=== PATIENT | female | born 1990 | race Caucasian/White ===

== ENCOUNTER → 2016-04-24 | Outpatient (CLI) | payer OTHER, MEDICAID ==
[~2016-04-24] MED LIST: ANTIVERT 25MG25 MG PO; ATARAX25 MG PO; ATIVAN 0.50.5 MG/TAB PO; BCP TD; BIRTH CONTROL; CELEXA PO; CELEXA20 MG PO; CELEXA40 MG PO; CEPHALEXIN500 M1 PO; CITALOPRAM40 MG PO; CLEOCIN HC150 MG/CAP PO; CRYSELLE 30 MCG1 TAB PO; DAYSEE; DECADRON 4MG TAB4 MG PO; DEPO-PROVER400 MG/ML IM; DESYREL 50MG50 MG PO; DOXYCYCLINE 10100 MG PO; ESKALITH C450 MG/TAB PO; FERRO-TIME325 MG PO; FLAGYL500 MG; FLEXERIL 1010 MG/TAB PO; HYDROCODONE/APAP; IMITREX100 MG PO; IMITREX50 MG; IMPLANON68 MG ID; LAMICTAL 25MG T25 MG PO; LEVAQUIN 250MG250 MG PO; LEVAQUIN 750MG750 MG PO; LEVORA PO; LEXAPRO 10MG10 MG PO; LITHIUM CA150 MG/CAP PO; LO/OVRAL-28 301 TA1 PO; LO/OVRAL-28 301 TAB PO; LORTAB 5/500 501 TAB PO; MACROBID 1100 MG/CAP PO; MELOXICAM15 MG PO; MOTRIN 400400 MG/TAB PO; MOTRIN 600600 MG/TAB PO; MULTI VITAMINS1 TAB PO; MULTIPLE VITAMI1 CAP PO; NAPROSYN500 MG PO; NEURONTIN400 MG/CAP PO; NEXPLANON68 MG ID; NO HOME MEDICATIONS; NORCO 325 MG-51 TAB PO; PERCOCET 325 MG1 TA2 PO; PHENERGAN 25 TA25 MG PO; PREDNISONE20 MG PO; PRENATAL 1 MG +1 TAB PO; PRENATAL FORMU1 EAC3 PO; PRENATAL1 TA1 PO; PRENATAL1 TA5 PO; PRISTIQ 50 MG T50 MG PO; PROAIR HFA0.09 MG/AC IH; PYRIDIUM 100MG100 MG; PYRIDIUM200 M1 PO; REGLAN 10MG10 MG/TAB PO; SINGULAIR 110 MG/TAB PO; TUSS PO; ULTRAM 50MG TAB50 MG PO; VALIUM 2MG T2 MG/TAB PO; VENTOLIN0.09 MG IH; VICODIN 5/5001 UDTAB PO; WELLBUTRIN SR150 M1 PO; WELLBUTRIN XL150 MG PO; WELLBUTRIN XL300 M1 PO; ZITHROMAX 250M250 MG PO; ZITHROMAX Z PA250 MG PO; ZOFRAN 4MG T4 MG/TAB PO; ZOFRAN ODT4 MG PO; ZOFRAN8 MG PO
== END ==
LOC: BHSO 13:17
DX: F31.81 Bipolar II disorder (principal)

== ENCOUNTER 2016-04-29 20:52 | Emergency (ER) | payer OTHER, MEDICAID ==
[~2016-04-29] VITALS: Ht 167.6 cm; Wt 64.5 kg
[~2016-04-29 20:52] MED LIST changes: -DAYSEE; -DECADRON 4MG TAB4 MG PO; -DESYREL 50MG50 MG PO; -IMITREX100 MG PO; -PRISTIQ 50 MG T50 MG PO; -PYRIDIUM 100MG100 MG; -VALIUM 2MG T2 MG/TAB PO; -WELLBUTRIN XL150 MG PO
[2016-04-29 20:54] VITALS: TEMP 98
[2016-04-29] MEDS ORDERED: ESKALITH C450 MG/TAB PO (20:57)
[2016-04-29] MEDS ORDERED: WELLBUTRIN XL150 MG PO (20:57)
[2016-04-29 21:51] LABS: BASO # 0.1 (0.0-0.2); BASO % 0.8 % (0.0-2.0); EOS # 0.1 (0.0-0.7); EOS % 1.4 % (0-4.0); GRAN % 62.8 % (42.2-75.2); HEMATOCRIT 39.7 % (37.0-47.0); HEMOGLOBIN 12.6 g/dl (12.5-16.0); LYMPH # 1.7 (1.2-3.4); LYMPH % 26.2 % (20.0-51.0); MEAN CELL VOLUME 87 fl (80.0-100.0); MEAN CORPUSCULAR HEMOGLOBIN 28 pg (27.0-31.0); MEAN CORPUSCULAR HGB CONC 32 g/dl (33.0-37.0); MEAN PLATELET VOLUME 9.8 fl (7.4-10.4); MONO # 0.5 (0.1-0.6); MONO % 8.5 % (1.7-9.3); PLATELET COUNT 250 K/mm3 (130-400); RED BLOOD COUNT 4.57 M/mm3 (4.10-5.30); REDCELL DISTRIBUTION WIDTH-CV 13.2 % (11.5-14.5); WHITE BLOOD COUNT 6.3 K/mm3 (4.8-10.8)
[2016-04-29 21:58] LABS: PH 7 (5-8); SQUAMOUS EPITHELIAL 0-2 /hpf; URINE APPEARANCE Clear; URINE BACTERIA None Seen /hpf; URINE BILIRUBIN Negative (NEGATIVE); URINE BLOOD 3+ (NEGATIVE); URINE COLOR Straw; URINE GLUCOSE Negative (NEGATIVE); URINE KETONE Negative (NEGATIVE); URINE UROBILINOGEN Negative (NEGATIVE); URINE WBC 0-2 /hpf
[2016-04-29 22:08] LABS: ADJUSTED CALCIUM 9.2 mg/dL (8.4-10.2); ALBUMIN 4.2 gm/dL (3.5-5.0); BILIRUBIN,TOTAL 0.4 mg/dL (0.0-1.0); CALCIUM 9.4 mg/dL (8.4-10.2); CREATININE, serum 0.9 mg/dL (0.52-1.25); POTASSIUM 3.9 mmol/L (3.4-5.0)
[2016-04-29] MEDS ORDERED: ZOFRAN ODT4 MG PO (23:47)
[2016-04-29] MEDS ORDERED: NORCO 325 MG-51 TAB PO (23:47)
[2016-04-30 00:09] VITALS: BP 107/71; PULSE 92
== END 2016-04-30 00:15 | disposition home or self-care (01) ==
LOC: COL.ER 20:52
PROVIDERS: Emergency Medicine
DX: R10.31 Right lower quadrant pain (principal); Z87.442 Personal history of urinary calculi
CPT/HCPCS: J2405; J3010; J7030

== ENCOUNTER → 2016-05-24 | Outpatient (CLI) | payer OTHER, MEDICAID ==
[~2016-05-24] MED LIST changes: +DAYSEE; +DECADRON 4MG TAB4 MG PO; +DESYREL 50MG50 MG PO; +IMITREX100 MG PO; +PRISTIQ 50 MG T50 MG PO; +PYRIDIUM 100MG100 MG; +VALIUM 2MG T2 MG/TAB PO; +WELLBUTRIN XL150 MG PO
== END ==
LOC: BHSO 12:50
DX: F31.81 Bipolar II disorder (principal)

== ENCOUNTER → 2016-05-31 | Outpatient (CLI) | payer OTHER | LOC: BHSO 13:17 | DX: F31.81 Bipolar II disorder (principal) ==

== ENCOUNTER 2016-06-18 10:15 | Emergency (ER) | payer OTHER ==
[~2016-06-18] VITALS: Ht 170.2 cm; Wt 64.5 kg
[~2016-06-18 10:15] MED LIST changes: -DAYSEE; -DECADRON 4MG TAB4 MG PO; -DESYREL 50MG50 MG PO; -IMITREX100 MG PO; -PRISTIQ 50 MG T50 MG PO; -PYRIDIUM 100MG100 MG; -VALIUM 2MG T2 MG/TAB PO
[2016-06-18] MEDS ORDERED: PRISTIQ 50 MG T50 MG PO (10:19)
[2016-06-18 11:00] LABS: BASO # 0.1 (0.0-0.2); BASO % 0.3 % (0.0-2.0); EOS # 0.1 (0.0-0.7); EOS % 0.3 % (0-4.0); GRAN # 16.8 (1.4-6.5); GRAN % 89.7 % (42.2-75.2); HEMATOCRIT 46.2 % (37.0-47.0); HEMOGLOBIN 14.7 g/dl (12.5-16.0); LYMPH # 0.9 (1.2-3.4); LYMPH % 4.8 % (20.0-51.0); MEAN CELL VOLUME 87 fl (80.0-100.0); MEAN CORPUSCULAR HEMOGLOBIN 28 pg (27.0-31.0); MEAN CORPUSCULAR HGB CONC 32 g/dl (33.0-37.0); MEAN PLATELET VOLUME 10.6 fl (7.4-10.4); MONO # 0.8 (0.1-0.6); MONO % 4.5 % (1.7-9.3); PLATELET COUNT 284 K/mm3 (130-400); RED BLOOD COUNT 5.31 M/mm3 (4.10-5.30); REDCELL DISTRIBUTION WIDTH-CV 13.5 % (11.5-14.5); WHITE BLOOD COUNT 18.8 K/mm3 (4.8-10.8)
[2016-06-18 11:27] LABS: ADJUSTED CALCIUM 9.2 mg/dL (8.4-10.2); ALBUMIN 4.8 gm/dL (3.5-5.0); BILIRUBIN,TOTAL 0.8 mg/dL (0.0-1.0); CALCIUM 9.8 mg/dL (8.4-10.2); CREATININE, serum 0.71 mg/dL (0.52-1.25); POTASSIUM 3.8 mmol/L (3.4-5.0); TOTAL PROTEIN 8.1 gm/dL (6.4-8.2)
[2016-06-18 11:30] LABS: PH 5 (5-8); URINE APPEARANCE Clear; URINE BACTERIA Rare /hpf; URINE BILIRUBIN Negative (NEGATIVE); URINE BLOOD Negative (NEGATIVE); URINE COLOR Yellow; URINE GLUCOSE Negative (NEGATIVE); URINE KETONE Negative (NEGATIVE); URINE RBC 0-2 /hpf; URINE UROBILINOGEN Negative (NEGATIVE)
[2016-06-18] MEDS ORDERED: MACROBID 1100 MG/CAP PO (11:53)
[2016-06-18 11:55] VITALS: BP 106/56; PULSE 84; TEMP 98.1
== END 2016-06-18 12:01 | disposition home or self-care (01) ==
LOC: COL.ER 10:15
PROVIDERS: Physician Assistant
DX: K52.9 Noninfective gastroenteritis and colitis, unspecified (principal); N39.0 Urinary tract infection, site not specified; Z87.442 Personal history of urinary calculi
CPT/HCPCS: J2405; J2550; J7030

== ENCOUNTER 2016-07-09 15:10 | Emergency (ER) | payer OTHER ==
[~2016-07-09] VITALS: Ht 170.2 cm; Wt 64.5 kg
[~2016-07-09 15:10] MED LIST changes: -DAYSEE; -DECADRON 4MG TAB4 MG PO; -DESYREL 50MG50 MG PO; -IMITREX100 MG PO; -PYRIDIUM 100MG100 MG; -VALIUM 2MG T2 MG/TAB PO
[2016-07-09 15:12] VITALS: TEMP 98.5
[2016-07-09 16:07] LABS: BASO % 0.5 % (0.0-2.0); EOS % 0.7 % (0-4.0); GRAN # 4.1 (1.4-6.5); GRAN % 68.2 % (42.2-75.2); HEMATOCRIT 38.1 % (37.0-47.0); LYMPH # 1.2 (1.2-3.4); LYMPH % 19.6 % (20.0-51.0); MEAN CELL VOLUME 87 fl (80.0-100.0); MEAN CORPUSCULAR HEMOGLOBIN 27 pg (27.0-31.0); MEAN CORPUSCULAR HGB CONC 31 g/dl (33.0-37.0); MEAN PLATELET VOLUME 9.9 fl (7.4-10.4); MONO # 0.7 (0.1-0.6); MONO % 10.8 % (1.7-9.3); PLATELET COUNT 239 K/mm3 (130-400); RED BLOOD COUNT 4.36 M/mm3 (4.10-5.30); REDCELL DISTRIBUTION WIDTH-CV 13.6 % (11.5-14.5)
[2016-07-09 16:09] LABS: HEMOGLOBIN 11.9 g/dl (12.5-16.0)
[2016-07-09 16:13] LABS: PH 6 (5-8); SQUAMOUS EPITHELIAL 0-2 /hpf; URINE APPEARANCE Clear; URINE BACTERIA None Seen /hpf; URINE BILIRUBIN Negative (NEGATIVE); URINE BLOOD Negative (NEGATIVE); URINE COLOR Straw; URINE GLUCOSE Negative (NEGATIVE); URINE KETONE Negative (NEGATIVE); URINE RBC 0-2 /hpf; URINE UROBILINOGEN Negative (NEGATIVE); URINE WBC 0-2 /hpf
[2016-07-09 16:20] LABS: ADJUSTED CALCIUM 9.3 mg/dL (8.4-10.2); BILIRUBIN,TOTAL 0.5 mg/dL (0.0-1.0); CALCIUM 9.3 mg/dL (8.4-10.2); CREATININE, serum 0.74 mg/dL (0.52-1.25); POTASSIUM 3.6 mmol/L (3.4-5.0); TOTAL PROTEIN 6.7 gm/dL (6.4-8.2)
[2016-07-09] MEDS ORDERED: PHENERGAN 25 TA25 MG PO (16:48)
[2016-07-09 17:07] VITALS: BP 100/64; PULSE 76
== END 2016-07-09 17:08 | disposition home or self-care (01) ==
LOC: COL.ER 15:10
PROVIDERS: Physician Assistant
DX: K29.70 Gastritis, unspecified, without bleeding (principal); R19.7 Diarrhea, unspecified; Z87.442 Personal history of urinary calculi
CPT/HCPCS: C9113; J1170; J2550; J7030

== ENCOUNTER → 2016-07-09 | Outpatient (CLI) | payer OTHER, MEDICAID ==
[~2016-07-09] MED LIST changes: +DAYSEE; +DECADRON 4MG TAB4 MG PO; +DESYREL 50MG50 MG PO; +IMITREX100 MG PO; +PRISTIQ 50 MG T50 MG PO; +PYRIDIUM 100MG100 MG; +VALIUM 2MG T2 MG/TAB PO
== END ==
LOC: BHSO 14:43
DX: F43.10 Post-traumatic stress disorder, unspecified (principal)

== ENCOUNTER 2016-07-14 20:31 | Emergency (ER) | payer OTHER, MEDICAID ==
[~2016-07-14] VITALS: Ht 170.2 cm; Wt 63.6 kg
[2016-07-14 20:33] VITALS: TEMP 98.8
[2016-07-14] MEDS ORDERED: DESYREL 50MG50 MG PO (20:36)
[2016-07-14 21:12] LABS: BASO % 0.7 % (0.0-2.0); EOS # 0.1 (0.0-0.7); EOS % 1.5 % (0-4.0); GRAN # 3.6 (1.4-6.5); GRAN % 59.5 % (42.2-75.2); HEMATOCRIT 37.8 % (37.0-47.0); LYMPH # 1.7 (1.2-3.4); LYMPH % 27.5 % (20.0-51.0); MEAN CELL VOLUME 86 fl (80.0-100.0); MEAN CORPUSCULAR HEMOGLOBIN 27 pg (27.0-31.0); MEAN CORPUSCULAR HGB CONC 32 g/dl (33.0-37.0); MEAN PLATELET VOLUME 9.9 fl (7.4-10.4); MONO # 0.6 (0.1-0.6); MONO % 10.5 % (1.7-9.3); PLATELET COUNT 250 K/mm3 (130-400); REDCELL DISTRIBUTION WIDTH-CV 13.8 % (11.5-14.5); WHITE BLOOD COUNT 6.1 K/mm3 (4.8-10.8)
[2016-07-14 21:24] LABS: ALANINE AMINOTRANSFERASE 22 U/L (9-52); ALBUMIN 4.4 gm/dL (3.5-5.0); ALKALINE PHOSPHATASE 140 U/L (50-136); ANION GAP 13 mmol/L (7-16); BILIRUBIN,TOTAL 0.5 mg/dL (0.0-1.0); BLOOD UREA NITROGEN 8 mg/dL (7-17); CALCIUM 9.3 mg/dL (8.4-10.2); CARBON DIOXIDE 24 mmol/L (22-30); CHLORIDE 105 mmol/L (98-107); CREATININE, serum 0.77 mg/dL (0.52-1.25); GLUCOSE 104 mg/dL (74-106); POTASSIUM 3.5 mmol/L (3.4-5.0); SODIUM 141 mmol/L (137-145); TOTAL PROTEIN 6.8 gm/dL (6.4-8.2)
[2016-07-14 21:26] LABS: C-REACTIVE PROTEIN < 0.5 mg/dL (0.0-0.9)
[2016-07-14 21:31] LABS: ERYTHROCYTE SEDIMENTATION RATE 1 mm/hr (0-20)
[2016-07-14 21:33] LABS: B-TYPE NATRIURETIC PEPTIDE 38 pg/mL (0-125); TROPONIN-I < 0.012 ng/mL (0.000-0.034)
[2016-07-14 22:01] VITALS: BP 104/65; PULSE 109
== END 2016-07-14 22:06 | disposition home or self-care (01) ==
LOC: COL.ER 20:31
PROVIDERS: Emergency Medicine
DX: R07.9 Chest pain, unspecified (principal); R06.00 Dyspnea, unspecified
CPT/HCPCS: J1170; J1885; J2405; J7030

== ENCOUNTER → 2016-07-17 | Outpatient (CLI) | payer OTHER, MEDICAID ==
[~2016-07-17] MED LIST changes: +DAYSEE; +DECADRON 4MG TAB4 MG PO; +DESYREL 50MG50 MG PO; +IMITREX100 MG PO; +PYRIDIUM 100MG100 MG; +VALIUM 2MG T2 MG/TAB PO
== END ==
LOC: BHSO 13:56
DX: F31.31 Bipolar disorder, current episode depressed, mild (principal)

== ENCOUNTER 2016-07-19 18:52 | Emergency (ER) | payer OTHER, MEDICAID ==
[~2016-07-19] VITALS: Ht 170.2 cm; Wt 63.6 kg
[~2016-07-19 18:52] MED LIST changes: -DAYSEE; -DECADRON 4MG TAB4 MG PO; -IMITREX100 MG PO; -PYRIDIUM 100MG100 MG; -VALIUM 2MG T2 MG/TAB PO
[2016-07-19 18:55] VITALS: TEMP 98.8
[2016-07-19] MEDS ORDERED: DECADRON 4MG TAB4 MG PO (20:41)
[2016-07-19 20:48] VITALS: BP 117/76; PULSE 109
== END 2016-07-19 20:49 | disposition home or self-care (01) ==
LOC: COL.ER 18:52
DX: J45.901 Unspecified asthma with (acute) exacerbation (principal)
CPT/HCPCS: J8540

== ENCOUNTER → 2016-07-31 | Outpatient (CLI) | payer OTHER, MEDICAID ==
[~2016-07-31] MED LIST changes: +DAYSEE; +DECADRON 4MG TAB4 MG PO; +IMITREX100 MG PO; +PYRIDIUM 100MG100 MG; +VALIUM 2MG T2 MG/TAB PO
== END ==
LOC: BHSO 13:50
DX: F31.81 Bipolar II disorder (principal)

== ENCOUNTER 2016-08-05 17:05 | Emergency (ER) | payer OTHER, MEDICAID ==
[~2016-08-05] VITALS: Ht 170.2 cm; Wt 64.5 kg
[~2016-08-05 17:05] MED LIST changes: -DAYSEE; -IMITREX100 MG PO; -PYRIDIUM 100MG100 MG; -VALIUM 2MG T2 MG/TAB PO
[2016-08-05 17:14] VITALS: BP 106/69; TEMP 99.3
[2016-08-05 19:54] LABS: BASO % 0.7 % (0.0-2.0); EOS # 0.1 (0.0-0.7); EOS % 1.4 % (0-4.0); GRAN # 3.5 (1.4-6.5); GRAN % 60.5 % (42.2-75.2); HEMOGLOBIN 12.1 g/dl (12.5-16.0); LYMPH # 1.5 (1.2-3.4); LYMPH % 26.1 % (20.0-51.0); MEAN CELL VOLUME 85 fl (80.0-100.0); MEAN CORPUSCULAR HEMOGLOBIN 27 pg (27.0-31.0); MEAN CORPUSCULAR HGB CONC 32 g/dl (33.0-37.0); MEAN PLATELET VOLUME 9.9 fl (7.4-10.4); MONO # 0.6 (0.1-0.6); PLATELET COUNT 236 K/mm3 (130-400); RED BLOOD COUNT 4.46 M/mm3 (4.10-5.30); REDCELL DISTRIBUTION WIDTH-CV 14.3 % (11.5-14.5); WHITE BLOOD COUNT 5.7 K/mm3 (4.8-10.8)
[2016-08-05 20:02] LABS: CALCIUM 9.4 mg/dL (8.4-10.2); CREATININE, serum 0.74 mg/dL (0.52-1.25); POTASSIUM 3.9 mmol/L (3.4-5.0)
[2016-08-05 20:24] LABS: LITHIUM 0.7 mmol/L (0.6-1.2)
[2016-08-05 20:47] VITALS: PULSE 68
== END 2016-08-05 20:48 | disposition home or self-care (01) ==
LOC: COL.ER 17:05
PROVIDERS: Physician Assistant
DX: G43.909 Migraine, unspecified, not intractable, without status migrainosus (principal); F31.9 Bipolar disorder, unspecified; J45.909 Unspecified asthma, uncomplicated; G89.29 Other chronic pain
CPT/HCPCS: J1885; J2300; J2765

== ENCOUNTER → 2016-08-14 | Outpatient (CLI) | payer OTHER, MEDICAID ==
[~2016-08-14] MED LIST changes: +DAYSEE; +IMITREX100 MG PO; +PYRIDIUM 100MG100 MG; +VALIUM 2MG T2 MG/TAB PO
== END ==
LOC: BHSO 13:49
DX: F31.81 Bipolar II disorder (principal)

== ENCOUNTER 2016-08-25 20:32 | Emergency (ER) | payer OTHER, MEDICAID ==
[~2016-08-25] VITALS: Ht 170.2 cm; Wt 64.5 kg
[~2016-08-25 20:32] MED LIST changes: -DAYSEE; -IMITREX100 MG PO; -PYRIDIUM 100MG100 MG; -VALIUM 2MG T2 MG/TAB PO
[2016-08-25 20:34] VITALS: TEMP 99.5
[2016-08-25 22:00] LABS: BASO # 0.1 (0.0-0.2); BASO % 0.9 % (0.0-2.0); EOS # 0.1 (0.0-0.7); EOS % 1.6 % (0-4.0); GRAN # 4.4 (1.4-6.5); GRAN % 64.2 % (42.2-75.2); HEMATOCRIT 36.4 % (37.0-47.0); HEMOGLOBIN 11.6 g/dl (12.5-16.0); LYMPH # 1.7 (1.2-3.4); LYMPH % 24.5 % (20.0-51.0); MEAN CELL VOLUME 84 fl (80.0-100.0); MEAN CORPUSCULAR HEMOGLOBIN 27 pg (27.0-31.0); MEAN CORPUSCULAR HGB CONC 32 g/dl (33.0-37.0); MEAN PLATELET VOLUME 9.5 fl (7.4-10.4); MONO # 0.6 (0.1-0.6); MONO % 8.7 % (1.7-9.3); PLATELET COUNT 266 K/mm3 (130-400); RED BLOOD COUNT 4.32 M/mm3 (4.10-5.30); REDCELL DISTRIBUTION WIDTH-CV 14.2 % (11.5-14.5); WHITE BLOOD COUNT 6.9 K/mm3 (4.8-10.8)
[2016-08-25 22:15] LABS: CALCIUM 9.1 mg/dL (8.4-10.2); CREATININE, serum 1.03 mg/dL (0.52-1.25); POTASSIUM 3.7 mmol/L (3.4-5.0)
[2016-08-25 23:30] VITALS: BP 105/66; PULSE 89
== END 2016-08-25 23:32 | disposition home or self-care (01) ==
LOC: COL.ER 20:32
PROVIDERS: Emergency Medicine
DX: R11.0 Nausea (principal); R19.7 Diarrhea, unspecified; M62.838 Other muscle spasm; R51 Headache; G89.29 Other chronic pain; F31.9 Bipolar disorder, unspecified
CPT/HCPCS: J1200; J2060; J2550; J7030

== ENCOUNTER 2016-08-27 13:10 | Emergency (ER) | payer OTHER, MEDICAID ==
[~2016-08-27] VITALS: Ht 170.2 cm; Wt 63.6 kg
[2016-08-27 13:14] VITALS: TEMP 99.3
[2016-08-27] MEDS ORDERED: ZOFRAN8 MG PO (13:45)
[2016-08-27] MEDS ORDERED: VALIUM 2MG T2 MG/TAB PO (13:45)
[2016-08-27 14:19] LABS: PH 6 (5-8); SQUAMOUS EPITHELIAL 0-2 /hpf; URINE APPEARANCE Clear; URINE BACTERIA None Seen /hpf; URINE BILIRUBIN Negative (NEGATIVE); URINE BLOOD 1+ (NEGATIVE); URINE COLOR Straw; URINE GLUCOSE Negative (NEGATIVE); URINE KETONE Negative (NEGATIVE); URINE RBC 0-2 /hpf; URINE UROBILINOGEN Negative (NEGATIVE)
[2016-08-27] MEDS ORDERED: MACROBID 1100 MG/CAP PO (14:31)
[2016-08-27 14:47] VITALS: BP 100/59; PULSE 86
== END 2016-08-27 14:49 | disposition home or self-care (01) ==
LOC: COL.ER 13:10
PROVIDERS: Emergency Medicine
DX: R42 Dizziness and giddiness (principal); R55 Syncope and collapse; G89.29 Other chronic pain; G43.909 Migraine, unspecified, not intractable, without status migrainosus
CPT/HCPCS: J1885; J3360; J7030

== ENCOUNTER 2016-08-30 20:45 | Emergency (ER) | payer OTHER, MEDICAID ==
[~2016-08-30] VITALS: Ht 170.2 cm; Wt 66.4 kg
[~2016-08-30 20:45] MED LIST changes: +VALIUM 2MG T2 MG/TAB PO
[2016-08-30 20:53] VITALS: TEMP 99
[2016-08-30] MEDS ORDERED: PYRIDIUM 100MG100 MG (20:59)
[2016-08-30] MEDS ORDERED: NORCO 325 MG-51 TAB PO (21:00)
[2016-08-30 21:35] LABS: BASO # 0.1 (0.0-0.2); BASO % 0.7 % (0.0-2.0); EOS # 0.1 (0.0-0.7); EOS % 1.3 % (0-4.0); GRAN # 4.4 (1.4-6.5); GRAN % 62.8 % (42.2-75.2); HEMATOCRIT 38.2 % (37.0-47.0); HEMOGLOBIN 12.2 g/dl (12.5-16.0); LYMPH # 1.7 (1.2-3.4); LYMPH % 24.9 % (20.0-51.0); MEAN CELL VOLUME 85 fl (80.0-100.0); MEAN CORPUSCULAR HEMOGLOBIN 27 pg (27.0-31.0); MEAN CORPUSCULAR HGB CONC 32 g/dl (33.0-37.0); MEAN PLATELET VOLUME 9.7 fl (7.4-10.4); MONO # 0.7 (0.1-0.6); PLATELET COUNT 284 K/mm3 (130-400); RED BLOOD COUNT 4.48 M/mm3 (4.10-5.30); WHITE BLOOD COUNT 6.9 K/mm3 (4.8-10.8)
[2016-08-30 21:56] LABS: ADJUSTED CALCIUM 8.7 mg/dL (8.4-10.2); ALANINE AMINOTRANSFERASE 14 U/L (9-52); ALBUMIN 4.6 gm/dL (3.5-5.0); ALKALINE PHOSPHATASE 105 U/L (50-136); ANION GAP 11 mmol/L (7-16); BILIRUBIN,TOTAL 0.6 mg/dL (0.0-1.0); BLOOD UREA NITROGEN 12 mg/dL (7-17); CALCIUM 9.2 mg/dL (8.4-10.2); CARBON DIOXIDE 25 mmol/L (22-30); CHLORIDE 103 mmol/L (98-107); CREATININE, serum 0.91 mg/dL (0.52-1.25); GLUCOSE 71 mg/dL (74-106); LIPASE 72 U/L (23-300); POTASSIUM 3.7 mmol/L (3.4-5.0); SODIUM 139 mmol/L (137-145); TOTAL PROTEIN 7.2 gm/dL (6.4-8.2)
[2016-08-30 22:01] LABS: C-REACTIVE PROTEIN < 0.5 mg/dL (0.0-0.9)
[2016-08-30 22:08] LABS: PH 6 (5-8); URINE APPEARANCE Clear; URINE BILIRUBIN Negative (NEGATIVE); URINE BLOOD 3+ (NEGATIVE); URINE COLOR Amber; URINE GLUCOSE Negative (NEGATIVE); URINE KETONE Negative (NEGATIVE); URINE UROBILINOGEN >=4.0 mg/dL (NEGATIVE)
[2016-08-30 22:17] LABS: LITHIUM 0.5 mmol/L (0.6-1.2)
[2016-08-30 22:17] LABS: SQUAMOUS EPITHELIAL 0-2 /hpf; URINE RBC None Seen /hpf; URINE WBC None Seen /hpf
[2016-08-30] MEDS ORDERED: PHENERGAN 25 TA25 MG PO (23:02)
[2016-08-30 23:26] VITALS: BP 117/66; PULSE 88
[2016-08-31] LABS: CHLAMYDIA/TRACH by PCR Female NOT DETECTED; NEISSERIA GON by PCR Female NOT DETECTED
== END 2016-08-30 23:25 | disposition home or self-care (01) ==
LOC: COL.ER 20:45
PROVIDERS: Emergency Medicine
DX: R10.32 Left lower quadrant pain (principal); R11.0 Nausea; F31.9 Bipolar disorder, unspecified; Z87.442 Personal history of urinary calculi; N93.9 Abnormal uterine and vaginal bleeding, unspecified; E16.2 Hypoglycemia, unspecified
CPT/HCPCS: J1170; J2405; J7030

== ENCOUNTER 2016-09-07 18:30 | Emergency (ER) | payer OTHER, MEDICAID ==
[~2016-09-07] VITALS: Ht 170.2 cm; Wt 65.9 kg
[~2016-09-07 18:30] MED LIST changes: +PYRIDIUM 100MG100 MG
[2016-09-07 18:44] VITALS: BP 105/74; TEMP 99.1
[2016-09-07 19:55] LABS: PH 7 (5-8); SQUAMOUS EPITHELIAL 0-2 /hpf; URINE APPEARANCE Clear; URINE BACTERIA None Seen /hpf; URINE BILIRUBIN Negative (NEGATIVE); URINE BLOOD 2+ (NEGATIVE); URINE COLOR Straw; URINE GLUCOSE Negative (NEGATIVE); URINE KETONE Negative (NEGATIVE); URINE RBC None Seen /hpf; URINE UROBILINOGEN Negative (NEGATIVE); URINE WBC 0-2 /hpf
[2016-09-07 20:18] LABS: BASO % 0.7 % (0.0-2.0); EOS # 0.1 (0.0-0.7); GRAN % 66.5 % (42.2-75.2); HEMATOCRIT 37.6 % (37.0-47.0); LYMPH # 1.3 (1.2-3.4); LYMPH % 22.1 % (20.0-51.0); MEAN CELL VOLUME 85 fl (80.0-100.0); MEAN CORPUSCULAR HEMOGLOBIN 26 pg (27.0-31.0); MEAN CORPUSCULAR HGB CONC 31 g/dl (33.0-37.0); MEAN PLATELET VOLUME 10.2 fl (7.4-10.4); MONO # 0.6 (0.1-0.6); MONO % 9.4 % (1.7-9.3); PLATELET COUNT 254 K/mm3 (130-400); RED BLOOD COUNT 4.42 M/mm3 (4.10-5.30); WHITE BLOOD COUNT 6.1 K/mm3 (4.8-10.8)
[2016-09-07 20:19] LABS: HEMOGLOBIN 11.6 g/dl (12.5-16.0)
[2016-09-07 21:53] VITALS: PULSE 72
[2016-09-07 23:40] LABS: CHLAMYDIA/TRACH by PCR Female NOT DETECTED; NEISSERIA GON by PCR Female NOT DETECTED
== END 2016-09-07 21:56 | disposition home or self-care (01) ==
LOC: COL.ER 18:30
PROVIDERS: Nurse Practitioner
DX: R10.2 Pelvic and perineal pain (principal); F31.81 Bipolar II disorder; J45.909 Unspecified asthma, uncomplicated; Z90.49 Acquired absence of other specified parts of digestive tract; Z87.440 Personal history of urinary (tract) infections
CPT/HCPCS: J2765; J3010

== ENCOUNTER 2016-09-09 11:08 | Emergency (ER) | payer OTHER, MEDICAID ==
[~2016-09-09] VITALS: Ht 170.2 cm; Wt 65.9 kg
[2016-09-09 11:14] VITALS: BP 105/63; TEMP 99.2
[2016-09-09 12:13] LABS: BASO % 0.6 % (0.0-2.0); EOS # 0.1 (0.0-0.7); EOS % 1.9 % (0-4.0); GRAN # 3.1 (1.4-6.5); GRAN % 59.1 % (42.2-75.2); HEMATOCRIT 37.4 % (37.0-47.0); LYMPH # 1.5 (1.2-3.4); LYMPH % 28.4 % (20.0-51.0); MEAN CELL VOLUME 85 fl (80.0-100.0); MEAN CORPUSCULAR HEMOGLOBIN 27 pg (27.0-31.0); MEAN CORPUSCULAR HGB CONC 32 g/dl (33.0-37.0); MEAN PLATELET VOLUME 9.9 fl (7.4-10.4); MONO # 0.5 (0.1-0.6); MONO % 9.8 % (1.7-9.3); PLATELET COUNT 257 K/mm3 (130-400); RED BLOOD COUNT 4.41 M/mm3 (4.10-5.30); REDCELL DISTRIBUTION WIDTH-CV 13.9 % (11.5-14.5); WHITE BLOOD COUNT 5.3 K/mm3 (4.8-10.8)
[2016-09-09 12:18] LABS: HEMOGLOBIN 11.8 g/dl (12.5-16.0)
[2016-09-09 12:26] LABS: ALANINE AMINOTRANSFERASE 22 U/L (9-52); ALBUMIN 4.3 gm/dL (3.5-5.0); ALKALINE PHOSPHATASE 101 U/L (50-136); ANION GAP 11 mmol/L (7-16); BILIRUBIN,TOTAL 0.6 mg/dL (0.0-1.0); BLOOD UREA NITROGEN 7 mg/dL (7-17); CALCIUM 9.2 mg/dL (8.4-10.2); CARBON DIOXIDE 22 mmol/L (22-30); CHLORIDE 105 mmol/L (98-107); CREATININE, serum 0.73 mg/dL (0.52-1.25); GLUCOSE 90 mg/dL (74-106); POTASSIUM 3.9 mmol/L (3.4-5.0); SODIUM 138 mmol/L (137-145); TOTAL PROTEIN 6.9 gm/dL (6.4-8.2)
[2016-09-09 12:33] LABS: C-REACTIVE PROTEIN < 0.5 mg/dL (0.0-0.9)
[2016-09-09 13:33] VITALS: PULSE 78
== END 2016-09-09 13:34 | disposition home or self-care (01) ==
LOC: COL.ER 11:08
PROVIDERS: Nurse Practitioner
DX: G89.29 Other chronic pain (principal); R10.2 Pelvic and perineal pain; F31.9 Bipolar disorder, unspecified; J45.909 Unspecified asthma, uncomplicated; M35.9 Systemic involvement of connective tissue, unspecified; Z87.440 Personal history of urinary (tract) infections; Z98.890 Other specified postprocedural states; Z90.49 Acquired absence of other specified parts of digestive tract

== ENCOUNTER → 2016-09-12 | Outpatient (CLI) | payer OTHER, MEDICAID ==
[~2016-09-12] MED LIST changes: +DAYSEE; +IMITREX100 MG PO
== END ==
LOC: COL.RAD 09:20
DX: N83.9 Noninflammatory disorder of ovary, fallopian tube and broad ligament, unspecified (principal); I86.8 Varicose veins of other specified sites

== ENCOUNTER 2016-09-13 18:25 | Emergency (ER) | payer OTHER, MEDICAID ==
[~2016-09-13] VITALS: Ht 170.2 cm; Wt 65.9 kg
[~2016-09-13 18:25] MED LIST changes: -DAYSEE; -IMITREX100 MG PO
[2016-09-13 18:29] VITALS: TEMP 98.9
[2016-09-13 18:56] LABS: BASO % 0.7 % (0.0-2.0); EOS # 0.1 (0.0-0.7); EOS % 1.8 % (0-4.0); GRAN # 3.7 (1.4-6.5); GRAN % 60.8 % (42.2-75.2); LYMPH # 1.7 (1.2-3.4); LYMPH % 27.2 % (20.0-51.0); MEAN CELL VOLUME 85 fl (80.0-100.0); MEAN CORPUSCULAR HGB CONC 32 g/dl (33.0-37.0); MONO # 0.6 (0.1-0.6); MONO % 9.3 % (1.7-9.3); PLATELET COUNT 275 K/mm3 (130-400); RED BLOOD COUNT 4.25 M/mm3 (4.10-5.30); REDCELL DISTRIBUTION WIDTH-CV 13.5 % (11.5-14.5); WHITE BLOOD COUNT 6.1 K/mm3 (4.8-10.8)
[2016-09-13 19:01] LABS: HEMATOCRIT 36.1 % (37.0-47.0); HEMOGLOBIN 11.5 g/dl (12.5-16.0); MEAN CORPUSCULAR HEMOGLOBIN 27 pg (27.0-31.0)
[2016-09-13 19:16] LABS: CREATININE, serum 0.8 mg/dL (0.52-1.25); POTASSIUM 3.8 mmol/L (3.4-5.0)
[2016-09-13] MEDS ORDERED: PERCOCET 325 MG1 TA2 PO (19:31)
[2016-09-13] MEDS ORDERED: ULTRAM 50MG TAB50 MG PO (19:31)
[2016-09-13 21:29] VITALS: BP 114/77; PULSE 77
== END 2016-09-13 21:29 | disposition home or self-care (01) ==
LOC: COL.ER 18:25
PROVIDERS: Emergency Medicine
DX: R10.2 Pelvic and perineal pain (principal); N83.202 Unspecified ovarian cyst, left side; F41.9 Anxiety disorder, unspecified; F32.9 Major depressive disorder, single episode, unspecified
CPT/HCPCS: J1170; J1885; J2405

== ENCOUNTER 2016-10-12 21:00 | Emergency (ER) | payer OTHER, MEDICAID ==
[~2016-10-12] VITALS: Ht 170.2 cm; Wt 63.6 kg
[2016-10-12 21:02] VITALS: BP 114/74; TEMP 99.1
[2016-10-12 21:54] LABS: BASO % 0.6 % (0.0-2.0); EOS # 0.1 (0.0-0.7); EOS % 2.5 % (0-4.0); GRAN # 2.9 (1.4-6.5); LYMPH # 1.1 (1.2-3.4); LYMPH % 23.3 % (20.0-51.0); MEAN CELL VOLUME 83 fl (80.0-100.0); MEAN CORPUSCULAR HGB CONC 31 g/dl (33.0-37.0); MEAN PLATELET VOLUME 10.5 fl (7.4-10.4); MONO # 0.7 (0.1-0.6); MONO % 13.4 % (1.7-9.3); PLATELET COUNT 266 K/mm3 (130-400); REDCELL DISTRIBUTION WIDTH-CV 12.9 % (11.5-14.5); WHITE BLOOD COUNT 4.9 K/mm3 (4.8-10.8)
[2016-10-12 21:56] LABS: HEMATOCRIT 33.9 % (37.0-47.0); HEMOGLOBIN 10.6 g/dl (12.5-16.0); MEAN CORPUSCULAR HEMOGLOBIN 26 pg (27.0-31.0)
[2016-10-12 21:57] LABS: PH 6 (5-8); SQUAMOUS EPITHELIAL 0-2 /hpf; URINE APPEARANCE Clear; URINE BACTERIA None Seen /hpf; URINE BILIRUBIN Negative (NEGATIVE); URINE BLOOD Negative (NEGATIVE); URINE COLOR Yellow; URINE GLUCOSE Negative (NEGATIVE); URINE KETONE Negative (NEGATIVE); URINE RBC 0-2 /hpf; URINE UROBILINOGEN Negative (NEGATIVE); URINE WBC 0-2 /hpf
[2016-10-12 22:09] LABS: ALBUMIN 4.2 gm/dL (3.5-5.0); BILIRUBIN,TOTAL 0.3 mg/dL (0.0-1.0); C-REACTIVE PROTEIN 0.9 mg/dL (0.0-0.9); CALCIUM 9.2 mg/dL (8.4-10.2); CREATININE, serum 0.8 mg/dL (0.52-1.25); POTASSIUM 3.8 mmol/L (3.4-5.0); TOTAL PROTEIN 6.7 gm/dL (6.4-8.2)
[2016-10-12 23:18] VITALS: PULSE 93
== END 2016-10-12 23:18 | disposition home or self-care (01) ==
LOC: COL.ER 21:00
PROVIDERS: Physician Assistant
DX: R10.31 Right lower quadrant pain (principal); R11.2 Nausea with vomiting, unspecified; R19.7 Diarrhea, unspecified; F31.81 Bipolar II disorder; J45.909 Unspecified asthma, uncomplicated; Z98.890 Other specified postprocedural states
CPT/HCPCS: J1170; J1200; J2550; J7030

== ENCOUNTER → 2016-10-14 | Outpatient (CLI) | payer OTHER, MEDICAID ==
[~2016-10-14] MED LIST changes: +DAYSEE; +IMITREX100 MG PO
== END ==
LOC: COL.RAD 10:56
DX: N83.201 Unspecified ovarian cyst, right side (principal); Z90.49 Acquired absence of other specified parts of digestive tract
CPT/HCPCS: Q9967

== ENCOUNTER 2016-10-28 21:09 | Emergency (ER) | payer OTHER, MEDICAID ==
[~2016-10-28] VITALS: Ht 170.2 cm; Wt 65.9 kg
[~2016-10-28 21:09] MED LIST changes: -DAYSEE; -IMITREX100 MG PO
[2016-10-28 21:10] VITALS: TEMP 99.3
[2016-10-28 21:49] LABS: BASO # 0.1 (0.0-0.2); BASO % 0.7 % (0.0-2.0); EOS # 0.1 (0.0-0.7); EOS % 1.5 % (0-4.0); GRAN # 4.5 (1.4-6.5); GRAN % 65.4 % (42.2-75.2); LYMPH # 1.6 (1.2-3.4); LYMPH % 23.6 % (20.0-51.0); MEAN CELL VOLUME 81 fl (80.0-100.0); MEAN CORPUSCULAR HGB CONC 31 g/dl (33.0-37.0); MEAN PLATELET VOLUME 10.3 fl (7.4-10.4); MONO # 0.6 (0.1-0.6); MONO % 8.5 % (1.7-9.3); PLATELET COUNT 315 K/mm3 (130-400); RED BLOOD COUNT 4.22 M/mm3 (4.10-5.30); WHITE BLOOD COUNT 6.8 K/mm3 (4.8-10.8)
[2016-10-28 21:50] LABS: HEMOGLOBIN 10.5 g/dl (12.5-16.0); MEAN CORPUSCULAR HEMOGLOBIN 25 pg (27.0-31.0)
[2016-10-28 22:26] VITALS: BP 111/79; PULSE 99
== END 2016-10-28 22:27 | disposition home or self-care (01) ==
LOC: COL.ER 21:09
PROVIDERS: Family Medicine
DX: F41.0 Panic disorder [episodic paroxysmal anxiety] (principal); R07.89 Other chest pain; R51 Headache; F31.9 Bipolar disorder, unspecified; R00.2 Palpitations
CPT/HCPCS: J2060; J7030

== ENCOUNTER 2016-11-10 12:38 | Emergency (ER) | payer OTHER, MEDICAID ==
[~2016-11-10] VITALS: Ht 170.2 cm; Wt 66.8 kg
[2016-11-10 12:44] VITALS: BP 115/64; PULSE 84; TEMP 99.2
[2016-11-10] MEDS ORDERED: DAYSEE (13:00)
== END 2016-11-10 13:38 | disposition home or self-care (01) ==
LOC: COL.ER 12:38
DX: S49.91XA Unspecified injury of right shoulder and upper arm, initial encounter (principal); F31.9 Bipolar disorder, unspecified; Z90.49 Acquired absence of other specified parts of digestive tract; Z87.42 Personal history of other diseases of the female genital tract; Z98.890 Other specified postprocedural states; X50.0XXA Overexertion from strenuous movement or load, initial encounter; Y92.830 Public park as the place of occurrence of the external cause

== ENCOUNTER → 2016-11-20 | Outpatient (CLI) | payer OTHER, MEDICAID ==
[~2016-11-20] MED LIST changes: +DAYSEE; +IMITREX100 MG PO
== END ==
LOC: COL.RAD 13:54
DX: S49.81XA Other specified injuries of right shoulder and upper arm, initial encounter (principal)
CPT/HCPCS: A9585; Q9967

== ENCOUNTER 2016-11-21 21:22 | Emergency (ER) | payer OTHER, MEDICAID ==
[~2016-11-21] VITALS: Ht 170.2 cm; Wt 65.5 kg
[~2016-11-21 21:22] MED LIST changes: -IMITREX100 MG PO
[2016-11-21 21:30] VITALS: BP 111/64; TEMP 98.9
[2016-11-21 22:48] VITALS: PULSE 88
== END 2016-11-21 22:49 | disposition home or self-care (01) ==
LOC: COL.ER 21:22
DX: R21 Rash and other nonspecific skin eruption (principal); T50.905A Adverse effect of unspecified drugs, medicaments and biological substances, initial encounter; F31.9 Bipolar disorder, unspecified; Z98.890 Other specified postprocedural states
CPT/HCPCS: J8540

== ENCOUNTER 2016-11-29 21:23 | Emergency (ER) | payer OTHER, MEDICAID ==
[~2016-11-29] VITALS: Ht 170.2 cm; Wt 62.7 kg
[2016-11-29 21:32] VITALS: BP 117/66; TEMP 99.3
[2016-11-30 00:43] VITALS: PULSE 85
== END 2016-11-30 00:48 | disposition home or self-care (01) ==
LOC: COL.ER 21:23
DX: G43.909 Migraine, unspecified, not intractable, without status migrainosus (principal); F32.9 Major depressive disorder, single episode, unspecified; Z98.890 Other specified postprocedural states
CPT/HCPCS: J1200; J1885; J2060; J2765; J7030

== ENCOUNTER 2016-12-25 20:42 | Emergency (ER) | payer OTHER, MEDICAID ==
[~2016-12-25] VITALS: Ht 170.2 cm; Wt 64.5 kg
[2016-12-25 20:50] VITALS: BP 117/66; TEMP 98.1
[2016-12-25] MEDS ORDERED: IMITREX100 MG PO (20:54)
[2016-12-25 23:02] VITALS: PULSE 86
== END 2016-12-25 23:06 | disposition home or self-care (01) ==
LOC: COL.ER 20:42
DX: G43.909 Migraine, unspecified, not intractable, without status migrainosus (principal); J45.909 Unspecified asthma, uncomplicated; F31.9 Bipolar disorder, unspecified
CPT/HCPCS: J1200; J1630; J1885; J2060; J7030

== ENCOUNTER → 2016-12-31 | Outpatient (CLI) | payer OTHER, MEDICAID ==
[~2016-12-31] MED LIST changes: +IMITREX100 MG PO
== END ==
LOC: COL.RAD 13:48
DX: R10.2 Pelvic and perineal pain (principal)

== ENCOUNTER 2017-01-04 20:36 | Emergency (ER) | payer OTHER, MEDICAID ==
[~2017-01-04] VITALS: Ht 170.2 cm; Wt 63.7 kg
[2017-01-04 20:43] VITALS: TEMP 98.7
[2017-01-04 21:44] LABS: BASO % 0.7 % (0.0-2.0); EOS % 0.6 % (0-4.0); GRAN % 54.3 % (42.2-75.2); HEMATOCRIT 35.4 % (37.0-47.0); HEMOGLOBIN 10.8 g/dl (12.5-16.0); LYMPH # 1.9 (1.2-3.4); LYMPH % 35.7 % (20.0-51.0); MEAN CELL VOLUME 74 fl (80.0-100.0); MEAN CORPUSCULAR HEMOGLOBIN 23 pg (27.0-31.0); MEAN CORPUSCULAR HGB CONC 31 g/dl (33.0-37.0); MEAN PLATELET VOLUME 10.4 fl (7.4-10.4); MONO # 0.5 (0.1-0.6); MONO % 8.5 % (1.7-9.3); PLATELET COUNT 288 K/mm3 (130-400); RED BLOOD COUNT 4.76 M/mm3 (4.10-5.30); REDCELL DISTRIBUTION WIDTH-CV 15.4 % (11.5-14.5); WHITE BLOOD COUNT 5.4 K/mm3 (4.8-10.8)
[2017-01-04 22:01] LABS: PH 7 (5-8); SQUAMOUS EPITHELIAL 0-2 /hpf; URINE APPEARANCE Clear; URINE BACTERIA Rare /hpf; URINE BILIRUBIN Negative (NEGATIVE); URINE BLOOD Negative (NEGATIVE); URINE COLOR Colorless; URINE GLUCOSE Negative (NEGATIVE); URINE KETONE Negative (NEGATIVE); URINE RBC 0-2 /hpf; URINE UROBILINOGEN Negative (NEGATIVE); URINE WBC 0-2 /hpf
[2017-01-04 22:06] LABS: C-REACTIVE PROTEIN 1.3 mg/dL (0.0-0.9); CALCIUM 9.2 mg/dL (8.4-10.2); CREATININE, serum 0.91 mg/dL (0.52-1.25)
[2017-01-05 00:23] VITALS: BP 103/67; PULSE 92
== END 2017-01-05 00:23 | disposition home or self-care (01) ==
LOC: COL.ER 20:36
PROVIDERS: Physician Assistant
DX: R10.2 Pelvic and perineal pain (principal); R39.11 Hesitancy of micturition; Z87.42 Personal history of other diseases of the female genital tract; Z90.49 Acquired absence of other specified parts of digestive tract
CPT/HCPCS: J1885; J2060; J2550; J7030

== ENCOUNTER 2017-01-27 08:23 | Emergency (ER) | payer OTHER ==
[~2017-01-27] VITALS: Ht 172.7 cm; Wt 59.1 kg
[2017-01-27 08:27] VITALS: BP 113/65; PULSE 93; TEMP 98.9
[2017-01-27] MEDS ORDERED: NORCO 325 MG-7.1 TAB PO (08:44)
[2017-01-27] MEDS ORDERED: ZOFRAN 4MG T4 MG/TAB PO (08:46)
[2017-01-27] MEDS ORDERED: MIRALAX PA17 GM/Dose PO (08:46)
[2017-01-27 09:27] LABS: PH 6 (5-8); URINE APPEARANCE Clear; URINE BACTERIA None Seen /hpf; URINE BILIRUBIN Negative (NEGATIVE); URINE BLOOD Negative (NEGATIVE); URINE COLOR Yellow; URINE GLUCOSE Negative (NEGATIVE); URINE KETONE Negative (NEGATIVE); URINE RBC 0-2 /hpf; URINE UROBILINOGEN Negative (NEGATIVE); URINE WBC 0-2 /hpf
== END 2017-01-27 10:40 | disposition home or self-care (01) ==
LOC: COL.ER 08:23
PROVIDERS: Physician Assistant Medical
DX: R10.2 Pelvic and perineal pain (principal); G43.909 Migraine, unspecified, not intractable, without status migrainosus; F31.9 Bipolar disorder, unspecified; Z90.49 Acquired absence of other specified parts of digestive tract; Z87.19 Personal history of other diseases of the digestive system
CPT/HCPCS: J1200; J2270; J2405; J7030

== ENCOUNTER → 2017-03-12 | Outpatient (CLI) | payer OTHER ==
[~2017-03-12] MED LIST changes: +LITHOBID 3300 MG/TAB PO; +MIRALAX PA17 GM/Dose PO; +NORCO 325 MG-7.1 TAB PO; +PROMETHAZINE12.5 M5 PO
== END ==
LOC: BHSO 13:36
DX: F31.81 Bipolar II disorder (principal)

== ENCOUNTER 2017-03-23 15:43 | Emergency (ER) | payer OTHER ==
[~2017-03-23] VITALS: Ht 172.7 cm; Wt 61.8 kg
[~2017-03-23 15:43] MED LIST changes: -LITHOBID 3300 MG/TAB PO
[2017-03-23 15:45] VITALS: BP 111/73; PULSE 97; TEMP 98.5
[2017-03-23] MEDS ORDERED: LITHOBID 3300 MG/TAB PO (15:49)
[2017-03-23] MEDS ORDERED: ATIVAN 0.50.5 MG/TAB PO (15:50)
[2017-03-23] MEDS ORDERED: FLEXERIL 1010 MG/TAB PO (16:10)
== END 2017-03-23 16:48 | disposition home or self-care (01) ==
LOC: COL.ER 15:43
DX: S39.012A Strain of muscle, fascia and tendon of lower back, initial encounter (principal); X50.0XXA Overexertion from strenuous movement or load, initial encounter
CPT/HCPCS: J2360

== ENCOUNTER 2017-03-31 10:20 | Emergency (ER) | payer OTHER ==
[~2017-03-31] VITALS: Ht 172.7 cm; Wt 62.7 kg
[2017-03-31 10:27] VITALS: BP 106/65; TEMP 98.1
[2017-03-31 11:30] LABS: BASO % 0.4 % (0.0-2.0); EOS % 0.1 % (0-4.0); GRAN % 84.4 % (42.2-75.2); HEMATOCRIT 41.4 % (37.0-47.0); HEMOGLOBIN 12.7 g/dl (12.5-16.0); LYMPH # 0.6 (1.2-3.4); LYMPH % 7.8 % (20.0-51.0); MEAN CELL VOLUME 79 fl (80.0-100.0); MEAN CORPUSCULAR HEMOGLOBIN 24 pg (27.0-31.0); MEAN CORPUSCULAR HGB CONC 31 g/dl (33.0-37.0); MEAN PLATELET VOLUME 10.4 fl (7.4-10.4); MONO # 0.6 (0.1-0.6); MONO % 6.9 % (1.7-9.3); PLATELET COUNT 191 K/mm3 (130-400); RED BLOOD COUNT 5.22 M/mm3 (4.10-5.30); WHITE BLOOD COUNT 8.3 K/mm3 (4.8-10.8)
[2017-03-31 11:35] LABS: ADJUSTED CALCIUM 9.1 mg/dL (8.4-10.2); ALBUMIN 5.1 gm/dL (3.5-5.0); BILIRUBIN,TOTAL 0.5 mg/dL (0.0-1.0); CREATININE, serum 0.78 mg/dL (0.52-1.25); MAGNESIUM 1.9 mg/dL (1.6-2.3); PHOSPHOROUS 3.4 mg/dL (2.5-4.5); TOTAL PROTEIN 7.8 gm/dL (6.4-8.2)
[2017-03-31 11:49] LABS: LITHIUM 0.3 mmol/L (0.6-1.2)
[2017-03-31] MEDS ORDERED: PHENERGAN 25 TA25 MG PO (13:44)
[2017-03-31] MEDS ORDERED: ZOFRAN ODT4 MG PO (13:44)
[2017-03-31 14:01] VITALS: PULSE 91
== END 2017-03-31 14:02 | disposition home or self-care (01) ==
LOC: COL.ER 10:20
PROVIDERS: Emergency Medicine
DX: R11.10 Vomiting, unspecified (principal); G43.909 Migraine, unspecified, not intractable, without status migrainosus; Z90.49 Acquired absence of other specified parts of digestive tract; Z90.710 Acquired absence of both cervix and uterus
CPT/HCPCS: J1885; J2060; J2405; J2550; J7030

== ENCOUNTER 2017-04-29 18:15 | Emergency (ER) | payer OTHER ==
[~2017-04-29] VITALS: Ht 172.7 cm; Wt 61.8 kg
[2017-04-29 18:17] VITALS: TEMP 99
[2017-04-29 18:47] LABS: COLLECTION METHOD CLEAN CATCH
[2017-04-29 18:53] LABS: BASO # 0.1 (0.0-0.2); BASO % 0.7 % (0.0-2.0); EOS # 0.1 (0.0-0.7); EOS % 1.1 % (0-4.0); GRAN # 5.2 (1.4-6.5); HEMATOCRIT 41.4 % (37.0-47.0); HEMOGLOBIN 12.8 g/dl (12.5-16.0); LYMPH # 1.4 (1.2-3.4); LYMPH % 19.3 % (20.0-51.0); MEAN CELL VOLUME 82 fl (80.0-100.0); MEAN CORPUSCULAR HEMOGLOBIN 25 pg (27.0-31.0); MEAN CORPUSCULAR HGB CONC 31 g/dl (33.0-37.0); MEAN PLATELET VOLUME 10.1 fl (7.4-10.4); MONO # 0.6 (0.1-0.6); MONO % 8.6 % (1.7-9.3); PLATELET COUNT 314 K/mm3 (130-400); RED BLOOD COUNT 5.04 M/mm3 (4.10-5.30); REDCELL DISTRIBUTION WIDTH-CV 16.6 % (11.5-14.5)
[2017-04-29 18:56] LABS: MUCOUS Present /lpf; PH 8 (5-8); SQUAMOUS EPITHELIAL 0-2 /hpf; URINE APPEARANCE Clear; URINE BACTERIA None Seen /hpf; URINE BILIRUBIN Negative (NEGATIVE); URINE BLOOD Negative (NEGATIVE); URINE COLOR Yellow; URINE GLUCOSE Negative (NEGATIVE); URINE KETONE Negative (NEGATIVE); URINE LEUKOCYTE ESTERASE 1+ (NEGATIVE); URINE NITRATE Negative (NEGATIVE); URINE PROTEIN(semi-quant) Negative (NEGATIVE); URINE RBC 0-2 /hpf; URINE UROBILINOGEN Negative (NEGATIVE)
[2017-04-29 19:04] LABS: BILIRUBIN,TOTAL 0.3 mg/dL (0.0-1.0); CREATININE, serum 0.89 mg/dL (0.52-1.25); POTASSIUM 3.8 mmol/L (3.4-5.0); TOTAL PROTEIN 7.6 gm/dL (6.4-8.2)
[2017-04-29 19:06] LABS: INFLUENZA A NEGATIVE; INFLUENZA B NEGATIVE
[2017-04-29 20:12] VITALS: BP 109/70; PULSE 88
== END 2017-04-29 20:13 | disposition home or self-care (01) ==
LOC: COL.ER 18:15
PROVIDERS: Physician Assistant
DX: I95.1 Orthostatic hypotension (principal); F31.9 Bipolar disorder, unspecified; Z90.49 Acquired absence of other specified parts of digestive tract; Z90.710 Acquired absence of both cervix and uterus
CPT/HCPCS: J7030

== ENCOUNTER 2017-05-25 16:13 | Emergency (ER) | payer OTHER ==
[~2017-05-25] VITALS: Ht 172.7 cm; Wt 61.4 kg
[2017-05-25 16:19] VITALS: BP 115/57; PULSE 87; TEMP 99.3
[2017-05-25] MEDS ORDERED: DEPAKOTE ER 50500 MG PO (16:22)
[2017-05-25] MEDS ORDERED: PREDNISONE20 MG PO (17:22)
== END 2017-05-25 17:30 | disposition home or self-care (01) ==
LOC: COL.ER 16:13
DX: J45.901 Unspecified asthma with (acute) exacerbation (principal); J06.9 Acute upper respiratory infection, unspecified; F31.9 Bipolar disorder, unspecified; Z90.49 Acquired absence of other specified parts of digestive tract; Z90.710 Acquired absence of both cervix and uterus

== ENCOUNTER 2017-06-28 18:24 | Emergency (ER) | payer OTHER ==
[~2017-06-28] VITALS: Ht 172.7 cm; Wt 63.5 kg
[2017-06-28 18:28] VITALS: BP 114/59; TEMP 99
[2017-06-28 19:05] LABS: BASO % 0.4 % (0.0-2.0); EOS % 0.4 % (0-4.0); GRAN # 2.5 (1.4-6.5); GRAN % 55.5 % (42.2-75.2); HEMATOCRIT 40.8 % (37.0-47.0); HEMOGLOBIN 13.1 g/dl (12.5-16.0); LYMPH # 1.6 (1.2-3.4); LYMPH % 34.1 % (20.0-51.0); MEAN CELL VOLUME 83 fl (80.0-100.0); MEAN CORPUSCULAR HEMOGLOBIN 27 pg (27.0-31.0); MEAN CORPUSCULAR HGB CONC 32 g/dl (33.0-37.0); MEAN PLATELET VOLUME 10.6 fl (7.4-10.4); MONO # 0.4 (0.1-0.6); MONO % 9.6 % (1.7-9.3); PLATELET COUNT 206 K/mm3 (130-400); RED BLOOD COUNT 4.92 M/mm3 (4.10-5.30); REDCELL DISTRIBUTION WIDTH-CV 15.6 % (11.5-14.5)
[2017-06-28 19:17] LABS: ALANINE AMINOTRANSFERASE 24 U/L (9-52); ALBUMIN 4.4 gm/dL (3.5-5.0); ALKALINE PHOSPHATASE 93 U/L (50-136); ANION GAP 13 mmol/L (7-16); AST,SGOT 19 U/L (15-37); BILIRUBIN,TOTAL 0.3 mg/dL (0.0-1.0); BLOOD UREA NITROGEN 10 mg/dL (7-17); CARBON DIOXIDE 24 mmol/L (22-30); CHLORIDE 104 mmol/L (98-107); GLUCOSE 93 mg/dL (74-106); SODIUM 142 mmol/L (137-145); TOTAL PROTEIN 6.8 gm/dL (6.4-8.2)
[2017-06-28 19:30] LABS: C-REACTIVE PROTEIN < 0.5 mg/dL (0.0-0.9)
[2017-06-28 19:35] LABS: COLLECTION METHOD CLEAN CATCH
[2017-06-28 19:50] LABS: AMORPHOUS CRYSTAL Present /uL; MUCOUS Present /lpf; PH 6 (5-8); SQUAMOUS EPITHELIAL 0-2 /hpf; URINE APPEARANCE Cloudy; URINE BACTERIA None Seen /hpf; URINE BILIRUBIN Negative (NEGATIVE); URINE BLOOD Negative (NEGATIVE); URINE COLOR Yellow; URINE GLUCOSE Negative (NEGATIVE); URINE KETONE Trace (NEGATIVE); URINE LEUKOCYTE ESTERASE Trace (NEGATIVE); URINE NITRATE Negative (NEGATIVE); URINE PROTEIN(semi-quant) Negative (NEGATIVE); URINE RBC 0-2 /hpf; URINE UROBILINOGEN Negative (NEGATIVE)
[2017-06-28] MEDS ORDERED: PHENERGAN 25 TA25 MG PO (19:51)
[2017-06-28 20:28] VITALS: PULSE 78
== END 2017-06-28 20:30 | disposition home or self-care (01) ==
LOC: COL.ER 18:24
PROVIDERS: Physician Assistant
DX: R11.2 Nausea with vomiting, unspecified (principal); R19.7 Diarrhea, unspecified; R10.13 Epigastric pain; F31.9 Bipolar disorder, unspecified; Z90.49 Acquired absence of other specified parts of digestive tract; Z90.710 Acquired absence of both cervix and uterus
CPT/HCPCS: J2550; J3010

== ENCOUNTER → 2017-06-28 | Outpatient (REF) ==
[~2017-06-28] MED LIST changes: +DEPAKOTE ER 50500 MG PO
== END ==
LOC: COL.EMP 19:26
DX: Z77.21 Contact with and (suspected) exposure to potentially hazardous body fluids (principal)

== ENCOUNTER 2017-07-29 21:21 | Emergency (ER) | payer OTHER ==
[2017-07-29 21:24] VITALS: TEMP 99.2
[2017-07-29 21:56] LABS: COLLECTION METHOD CLEAN CATCH
[2017-07-29 22:00] LABS: PH 7 (5-8); SQUAMOUS EPITHELIAL 0-2 /hpf; URINE APPEARANCE Clear; URINE BACTERIA None Seen /hpf; URINE BILIRUBIN Negative (NEGATIVE); URINE BLOOD Negative (NEGATIVE); URINE COLOR Straw; URINE GLUCOSE Negative (NEGATIVE); URINE KETONE Negative (NEGATIVE); URINE LEUKOCYTE ESTERASE Trace (NEGATIVE); URINE NITRATE Negative (NEGATIVE); URINE PROTEIN(semi-quant) Negative (NEGATIVE); URINE RBC 0-2 /hpf; URINE UROBILINOGEN Negative (NEGATIVE)
[2017-07-29 22:23] LABS: BASO % 0.5 % (0.0-2.0); EOS % 0.5 % (0-4.0); GRAN # 3.5 (1.4-6.5); GRAN % 61.8 % (42.2-75.2); HEMATOCRIT 40.8 % (37.0-47.0); HEMOGLOBIN 13.1 g/dl (12.5-16.0); LYMPH # 1.6 (1.2-3.4); LYMPH % 27.6 % (20.0-51.0); MEAN CELL VOLUME 82 fl (80.0-100.0); MEAN CORPUSCULAR HEMOGLOBIN 27 pg (27.0-31.0); MEAN CORPUSCULAR HGB CONC 32 g/dl (33.0-37.0); MEAN PLATELET VOLUME 10.4 fl (7.4-10.4); MONO # 0.5 (0.1-0.6); MONO % 9.4 % (1.7-9.3); PLATELET COUNT 223 K/mm3 (130-400); RED BLOOD COUNT 4.95 M/mm3 (4.10-5.30); REDCELL DISTRIBUTION WIDTH-CV 15.6 % (11.5-14.5)
[2017-07-29 22:36] LABS: ALANINE AMINOTRANSFERASE 20 U/L (9-52); ALBUMIN 4.1 gm/dL (3.5-5.0); ALKALINE PHOSPHATASE 87 U/L (50-136); ANION GAP 13 mmol/L (7-16); AST,SGOT 18 U/L (15-37); BILIRUBIN,TOTAL 0.2 mg/dL (0.0-1.0); BLOOD UREA NITROGEN 13 mg/dL (7-17); C-REACTIVE PROTEIN < 0.5 mg/dL (0.0-0.9); CALCIUM 9.4 mg/dL (8.4-10.2); CARBON DIOXIDE 25 mmol/L (22-30); CHLORIDE 103 mmol/L (98-107); CREATININE, serum 0.72 mg/dL (0.52-1.25); GLUCOSE 96 mg/dL (74-106); LIPASE 64 U/L (23-300); SODIUM 141 mmol/L (137-145); TOTAL PROTEIN 7.1 gm/dL (6.4-8.2)
[2017-07-29] MEDS ORDERED: PERCOCET 325 MG1 TA2 PO (23:04)
[2017-07-29 23:30] VITALS: BP 113/73; PULSE 82
== END 2017-07-29 23:25 | disposition home or self-care (01) ==
LOC: COL.ER 21:21
PROVIDERS: Emergency Medicine
DX: G89.29 Other chronic pain (principal); R10.2 Pelvic and perineal pain; F31.9 Bipolar disorder, unspecified; G43.909 Migraine, unspecified, not intractable, without status migrainosus; Z90.710 Acquired absence of both cervix and uterus; Z90.49 Acquired absence of other specified parts of digestive tract
CPT/HCPCS: J1885; J3010

== ENCOUNTER 2017-08-17 08:33 | Emergency (ER) | payer OTHER ==
[~2017-08-17] VITALS: Ht 170.2 cm; Wt 63.6 kg
[2017-08-17 08:59] VITALS: BP 122/64; PULSE 99; TEMP 97.1
[2017-08-17 09:08] LABS: COLLECTION METHOD CLEAN CATCH
[2017-08-17 09:13] LABS: PH 6 (5-8); SQUAMOUS EPITHELIAL 0-2 /hpf; URINE APPEARANCE Clear; URINE BACTERIA None Seen /hpf; URINE BILIRUBIN Negative (NEGATIVE); URINE BLOOD Negative (NEGATIVE); URINE COLOR Straw; URINE GLUCOSE Negative (NEGATIVE); URINE KETONE Negative (NEGATIVE); URINE LEUKOCYTE ESTERASE Negative (NEGATIVE); URINE NITRATE Negative (NEGATIVE); URINE PROTEIN(semi-quant) Negative (NEGATIVE); URINE RBC 0-2 /hpf; URINE UROBILINOGEN Negative (NEGATIVE)
[2017-08-17 09:31] LABS: BASO % 0.6 % (0.0-2.0); EOS % 0.9 % (0-4.0); GRAN # 1.7 (1.4-6.5); GRAN % 47.6 % (42.2-75.2); HEMATOCRIT 41.6 % (37.0-47.0); HEMOGLOBIN 13.6 g/dl (12.5-16.0); LYMPH # 1.3 (1.2-3.4); LYMPH % 37.7 % (20.0-51.0); MEAN CELL VOLUME 83 fl (80.0-100.0); MEAN CORPUSCULAR HEMOGLOBIN 27 pg (27.0-31.0); MEAN CORPUSCULAR HGB CONC 33 g/dl (33.0-37.0); MEAN PLATELET VOLUME 10.5 fl (7.4-10.4); MONO # 0.4 (0.1-0.6); MONO % 12.6 % (1.7-9.3); PLATELET COUNT 264 K/mm3 (130-400); RED BLOOD COUNT 5.03 M/mm3 (4.10-5.30); REDCELL DISTRIBUTION WIDTH-CV 15.8 % (11.5-14.5)
[2017-08-17 09:45] LABS: ALBUMIN 4.1 gm/dL (3.5-5.0); BILIRUBIN,TOTAL 0.2 mg/dL (0.0-1.0); C-REACTIVE PROTEIN 0.6 mg/dL (0.0-0.9); CALCIUM 9.4 mg/dL (8.4-10.2); CREATININE, serum 0.7 mg/dL (0.52-1.25); POTASSIUM 4.2 mmol/L (3.4-5.0); TOTAL PROTEIN 6.9 gm/dL (6.4-8.2)
== END 2017-08-17 11:13 | disposition home or self-care (01) ==
LOC: COL.ER 08:33
PROVIDERS: Emergency Medicine
DX: R10.31 Right lower quadrant pain (principal); Z90.710 Acquired absence of both cervix and uterus; Z90.49 Acquired absence of other specified parts of digestive tract
CPT/HCPCS: J1170; J1885; J2405; J7030; Q9967

== ENCOUNTER → 2017-09-24 | Outpatient (CLI) | payer OTHER | LOC: BHSO 13:48 | DX: F31.81 Bipolar II disorder (principal) | CPT/HCPCS: G0463 ==

== ENCOUNTER → 2017-10-26 | Emergency (ER) | payer OTHER ==
[~2017-10-26] VITALS: Ht 172.7 cm; Wt 65.5 kg
[2017-10-26 21:19] VITALS: TEMP 98.9
[2017-10-26 22:06] LABS: COLLECTION METHOD CLEAN CATCH
[2017-10-26 22:11] LABS: PH 6 (5-8); SQUAMOUS EPITHELIAL 0-2 /hpf; URINE APPEARANCE Clear; URINE BACTERIA None Seen /hpf; URINE BILIRUBIN Negative (NEGATIVE); URINE BLOOD Negative (NEGATIVE); URINE COLOR Straw; URINE GLUCOSE Negative (NEGATIVE); URINE KETONE Negative (NEGATIVE); URINE LEUKOCYTE ESTERASE Negative (NEGATIVE); URINE NITRATE Negative (NEGATIVE); URINE PROTEIN(semi-quant) Negative (NEGATIVE); URINE RBC 0-2 /hpf; URINE UROBILINOGEN Negative (NEGATIVE)
[2017-10-26 23:24] VITALS: BP 107/67; PULSE 81
== END ==
LOC: COL.ER 21:17
PROVIDERS: Nurse Practitioner Primary Care
DX: G89.29 Other chronic pain (principal); R10.2 Pelvic and perineal pain; F31.9 Bipolar disorder, unspecified; G43.909 Migraine, unspecified, not intractable, without status migrainosus; Z90.710 Acquired absence of both cervix and uterus; Z90.49 Acquired absence of other specified parts of digestive tract
CPT/HCPCS: J1170; J1885; J2405

== ENCOUNTER 2017-11-11 21:22 | Emergency (ER) | payer OTHER ==
[~2017-11-11] VITALS: Ht 172.7 cm; Wt 65.9 kg
[2017-11-11 21:26] VITALS: TEMP 99.3
[2017-11-11 21:54] LABS: COLLECTION METHOD CLEAN CATCH
[2017-11-11 22:04] LABS: MUCOUS Present /lpf; PH 7 (5-8); SQUAMOUS EPITHELIAL 0-2 /hpf; URINE APPEARANCE Clear; URINE BACTERIA None Seen /hpf; URINE BILIRUBIN Negative (NEGATIVE); URINE BLOOD Negative (NEGATIVE); URINE COLOR Colorless; URINE GLUCOSE Negative (NEGATIVE); URINE KETONE Negative (NEGATIVE); URINE LEUKOCYTE ESTERASE Negative (NEGATIVE); URINE NITRATE Negative (NEGATIVE); URINE PROTEIN(semi-quant) Negative (NEGATIVE); URINE RBC 0-2 /hpf; URINE UROBILINOGEN Negative (NEGATIVE)
[2017-11-11 22:06] LABS: BASO % 0.7 % (0.0-2.0); EOS # 0.2 (0.0-0.7); EOS % 4.1 % (0-4.0); GRAN # 2.1 (1.4-6.5); GRAN % 47.3 % (42.2-75.2); HEMATOCRIT 43.1 % (37.0-47.0); HEMOGLOBIN 14.3 g/dl (12.5-16.0); LYMPH # 1.6 (1.2-3.4); LYMPH % 35.5 % (20.0-51.0); MEAN CELL VOLUME 87 fl (80.0-100.0); MEAN CORPUSCULAR HEMOGLOBIN 29 pg (27.0-31.0); MEAN CORPUSCULAR HGB CONC 33 g/dl (33.0-37.0); MEAN PLATELET VOLUME 10.3 fl (7.4-10.4); MONO # 0.5 (0.1-0.6); MONO % 11.9 % (1.7-9.3); PLATELET COUNT 197 K/mm3 (130-400); RED BLOOD COUNT 4.94 M/mm3 (4.10-5.30); REDCELL DISTRIBUTION WIDTH-CV 13.2 % (11.5-14.5)
[2017-11-11 22:20] LABS: ALBUMIN 4.2 gm/dL (3.5-5.0); BILIRUBIN,TOTAL 0.2 mg/dL (0.0-1.0); C-REACTIVE PROTEIN 0.6 mg/dL (0.0-0.9); CREATININE, serum 0.69 mg/dL (0.52-1.25); TOTAL PROTEIN 6.9 gm/dL (6.4-8.2)
[2017-11-11 23:35] VITALS: BP 108/64; PULSE 82
== END 2017-11-11 23:35 | disposition home or self-care (01) ==
LOC: COL.ER 21:22
PROVIDERS: Family Medicine
DX: G89.18 Other acute postprocedural pain (principal); J45.909 Unspecified asthma, uncomplicated; Z90.710 Acquired absence of both cervix and uterus; Z98.890 Other specified postprocedural states
CPT/HCPCS: J1170; J1200; J7120

== ENCOUNTER 2017-11-14 19:30 | Emergency (ER) | payer OTHER ==
[~2017-11-14] VITALS: Ht 170.2 cm; Wt 65.0 kg
[2017-11-14 19:33] VITALS: TEMP 98.6
[2017-11-14 20:44] LABS: BASO % 0.7 % (0.0-2.0); EOS # 0.1 (0.0-0.7); EOS % 2.4 % (0-4.0); GRAN # 2.1 (1.4-6.5); HEMATOCRIT 42.6 % (37.0-47.0); HEMOGLOBIN 14.1 g/dl (12.5-16.0); LYMPH # 1.4 (1.2-3.4); LYMPH % 34.3 % (20.0-51.0); MEAN CELL VOLUME 86 fl (80.0-100.0); MEAN CORPUSCULAR HEMOGLOBIN 29 pg (27.0-31.0); MEAN CORPUSCULAR HGB CONC 33 g/dl (33.0-37.0); MEAN PLATELET VOLUME 10.9 fl (7.4-10.4); MONO # 0.5 (0.1-0.6); MONO % 11.4 % (1.7-9.3); PLATELET COUNT 151 K/mm3 (130-400); RED BLOOD COUNT 4.93 M/mm3 (4.10-5.30); REDCELL DISTRIBUTION WIDTH-CV 13.1 % (11.5-14.5)
[2017-11-14 20:57] LABS: ALANINE AMINOTRANSFERASE 25 U/L (9-52); ALBUMIN 4.4 gm/dL (3.5-5.0); ALKALINE PHOSPHATASE 69 U/L (50-136); ANION GAP 9 mmol/L (7-16); AST,SGOT 18 U/L (15-37); BILIRUBIN,TOTAL 0.4 mg/dL (0.0-1.0); BLOOD UREA NITROGEN 12 mg/dL (7-17); CALCIUM 9.2 mg/dL (8.4-10.2); CARBON DIOXIDE 26 mmol/L (22-30); CHLORIDE 104 mmol/L (98-107); CREATININE, serum 0.64 mg/dL (0.52-1.25); GLUCOSE 84 mg/dL (74-106); LIPASE 38 U/L (23-300); POTASSIUM 3.9 mmol/L (3.4-5.0); SODIUM 138 mmol/L (137-145); TOTAL PROTEIN 7.1 gm/dL (6.4-8.2)
[2017-11-14 21:01] LABS: C-REACTIVE PROTEIN < 0.5 mg/dL (0.0-0.9)
[2017-11-14 21:09] LABS: COLLECTION METHOD CLEAN CATCH
[2017-11-14 21:21] LABS: MUCOUS Present /lpf; SQUAMOUS EPITHELIAL None Seen /hpf; URINE BACTERIA None Seen /hpf; URINE RBC None Seen /hpf
[2017-11-14 21:27] LABS: PH 5 (5-8); URINE APPEARANCE Clear; URINE BILIRUBIN Negative (NEGATIVE); URINE BLOOD Negative (NEGATIVE); URINE COLOR Yellow; URINE GLUCOSE Negative (NEGATIVE); URINE KETONE 1+ (NEGATIVE); URINE LEUKOCYTE ESTERASE Negative (NEGATIVE); URINE NITRATE Negative (NEGATIVE); URINE PROTEIN(semi-quant) Negative (NEGATIVE); URINE UROBILINOGEN Negative (NEGATIVE)
[2017-11-14] MEDS ORDERED: NORCO 325 MG-51 TAB PO (21:54)
[2017-11-14 22:08] VITALS: BP 113/63; PULSE 68
== END 2017-11-14 22:10 | disposition home or self-care (01) ==
LOC: COL.ER 19:30
PROVIDERS: Emergency Medicine
DX: R10.32 Left lower quadrant pain (principal); G89.29 Other chronic pain; F31.9 Bipolar disorder, unspecified; Z90.49 Acquired absence of other specified parts of digestive tract; Z90.710 Acquired absence of both cervix and uterus
CPT/HCPCS: J2405; J3010; J7030

== ENCOUNTER → 2017-11-26 | Outpatient (CLI) | payer OTHER | LOC: BHSO 10:49 | DX: F31.81 Bipolar II disorder (principal) | CPT/HCPCS: G0463 ==

== ENCOUNTER 2017-12-08 11:48 | Emergency (ER) | payer OTHER ==
[~2017-12-08] VITALS: Ht 170.2 cm; Wt 64.8 kg
[2017-12-08 11:55] VITALS: BP 110/70; PULSE 93; TEMP 99.3
[2017-12-08] MEDS ORDERED: TOPAMAX 25MG25 M1 PO (12:03)
[2017-12-08] MEDS ORDERED: LAMICTAL150 MG PO (12:03)
[2017-12-08] MEDS ORDERED: NORETHINDRONE AC5 MG PO (12:04)
== END 2017-12-08 13:28 | disposition home or self-care (01) ==
LOC: COL.ER 11:48
DX: S09.90XA Unspecified injury of head, initial encounter (principal); S00.33XA Contusion of nose, initial encounter; F31.9 Bipolar disorder, unspecified; Z88.5 Allergy status to narcotic agent; W22.8XXA Striking against or struck by other objects, initial encounter

== ENCOUNTER 2018-01-10 16:35 | Emergency (ER) | payer OTHER ==
[~2018-01-10] VITALS: Ht 172.7 cm; Wt 61.4 kg
[~2018-01-10 16:35] MED LIST changes: +LAMICTAL150 MG PO; +NORETHINDRONE AC5 MG PO; +TOPAMAX 25MG25 M1 PO
[2018-01-10 16:40] VITALS: BP 106/69; TEMP 98.4
[2018-01-10] MEDS ORDERED: NORCO 325 MG-51 TAB PO (17:20)
[2018-01-10 17:40] VITALS: PULSE 80
== END 2018-01-10 17:41 | disposition home or self-care (01) ==
LOC: COL.ER 16:35
DX: S40.262A Insect bite (nonvenomous) of left shoulder, initial encounter (principal); Z90.710 Acquired absence of both cervix and uterus; Z98.890 Other specified postprocedural states; Z90.49 Acquired absence of other specified parts of digestive tract; W57.XXXA Bitten or stung by nonvenomous insect and other nonvenomous arthropods, initial encounter

== ENCOUNTER 2018-02-03 19:03 | Emergency (ER) | payer OTHER ==
[~2018-02-03] VITALS: Ht 170.2 cm; Wt 62.3 kg
[2018-02-03 20:23] LABS: BASO % 0.4 % (0.0-2.0); GRAN # 3.9 (1.4-6.5); GRAN % 77.1 % (42.2-75.2); HEMATOCRIT 40.2 % (37.0-47.0); HEMOGLOBIN 13.5 g/dl (12.5-16.0); LYMPH # 0.5 (1.2-3.4); LYMPH % 9.3 % (20.0-51.0); MEAN CELL VOLUME 88 fl (80.0-100.0); MEAN CORPUSCULAR HEMOGLOBIN 30 pg (27.0-31.0); MEAN CORPUSCULAR HGB CONC 34 g/dl (33.0-37.0); MONO # 0.6 (0.1-0.6); MONO % 12.6 % (1.7-9.3); PLATELET COUNT 175 K/mm3 (130-400); RED BLOOD COUNT 4.57 M/mm3 (4.10-5.30); REDCELL DISTRIBUTION WIDTH-CV 13.1 % (11.5-14.5)
[2018-02-03 20:33] LABS: BILIRUBIN,TOTAL 0.2 mg/dL (0.0-1.0); C-REACTIVE PROTEIN 1.5 mg/dL (0.0-0.9); CALCIUM 8.9 mg/dL (8.4-10.2); CREATININE, serum 0.79 mg/dL (0.52-1.25); POTASSIUM 3.4 mmol/L (3.4-5.0); TOTAL PROTEIN 6.5 gm/dL (6.4-8.2)
[2018-02-03] MEDS ORDERED: ZITHROMAX 250M250 MG PO (21:04)
[2018-02-03 21:12] VITALS: PULSE 92; TEMP 100.3
[2018-02-03 21:30] VITALS: BP 98/57
== END 2018-02-03 21:34 | disposition home or self-care (01) ==
LOC: COL.ER 19:03
PROVIDERS: Nurse Practitioner
DX: J18.1 Lobar pneumonia, unspecified organism (principal); F31.9 Bipolar disorder, unspecified
CPT/HCPCS: J1200; J2765; J7030

== ENCOUNTER → 2018-02-19 | Outpatient (CLI) | payer OTHER | LOC: BHSO 11:39 | DX: F31.81 Bipolar II disorder (principal) | CPT/HCPCS: G0463 ==

== ENCOUNTER 2018-03-02 21:19 | Emergency (ER) | payer OTHER ==
[~2018-03-02] VITALS: Ht 172.7 cm; Wt 61.4 kg
[2018-03-02 21:23] VITALS: BP 117/69; TEMP 99
[2018-03-02 23:17] LABS: BASO % 0.5 % (0.0-2.0); EOS % 0.7 % (0-4.0); GRAN # 3.5 (1.4-6.5); GRAN % 59.1 % (42.2-75.2); HEMATOCRIT 41.4 % (37.0-47.0); HEMOGLOBIN 13.6 g/dl (12.5-16.0); LYMPH # 1.6 (1.2-3.4); LYMPH % 27.8 % (20.0-51.0); MEAN CELL VOLUME 91 fl (80.0-100.0); MEAN CORPUSCULAR HEMOGLOBIN 30 pg (27.0-31.0); MEAN CORPUSCULAR HGB CONC 33 g/dl (33.0-37.0); MEAN PLATELET VOLUME 10.2 fl (7.4-10.4); MONO # 0.7 (0.1-0.6); MONO % 11.4 % (1.7-9.3); PLATELET COUNT 157 K/mm3 (130-400); RED BLOOD COUNT 4.57 M/mm3 (4.10-5.30); REDCELL DISTRIBUTION WIDTH-CV 13.1 % (11.5-14.5)
[2018-03-02 23:28] LABS: ALBUMIN 3.9 gm/dL (3.5-5.0); BILIRUBIN,TOTAL 0.2 mg/dL (0.0-1.0); CALCIUM 9.2 mg/dL (8.4-10.2); CREATININE, serum 0.74 mg/dL (0.52-1.25); TOTAL PROTEIN 6.2 gm/dL (6.4-8.2)
[2018-03-03 01:49] LABS: COLLECTION METHOD CLEAN CATCH
[2018-03-03 01:56] LABS: MUCOUS Present /lpf; PH 7 (5-8); SQUAMOUS EPITHELIAL 0-2 /hpf; URINE APPEARANCE Clear; URINE BACTERIA Rare /hpf; URINE BILIRUBIN Negative (NEGATIVE); URINE BLOOD Negative (NEGATIVE); URINE COLOR Straw; URINE GLUCOSE Negative (NEGATIVE); URINE KETONE Negative (NEGATIVE); URINE LEUKOCYTE ESTERASE Negative (NEGATIVE); URINE NITRATE Negative (NEGATIVE); URINE PROTEIN(semi-quant) Negative (NEGATIVE); URINE RBC None Seen /hpf; URINE UROBILINOGEN Negative (NEGATIVE)
[2018-03-03 02:23] VITALS: PULSE 83
== END 2018-03-03 02:26 | disposition home or self-care (01) ==
LOC: COL.ER 21:19
PROVIDERS: Emergency Medicine
DX: R10.31 Right lower quadrant pain (principal); Z90.49 Acquired absence of other specified parts of digestive tract; Z90.710 Acquired absence of both cervix and uterus
CPT/HCPCS: J1630; J1885; J2550; J7030

== ENCOUNTER 2018-03-06 20:08 | Emergency (ER) | payer OTHER ==
[~2018-03-06] VITALS: Ht 175.3 cm; Wt 62.7 kg
[2018-03-06 20:18] VITALS: BP 116/66; TEMP 99.2
[2018-03-06] MEDS ORDERED: NORCO 325 MG-51 TAB PO (21:30)
[2018-03-06 21:51] VITALS: PULSE 80
== END 2018-03-06 21:53 | disposition home or self-care (01) ==
LOC: COL.ER 20:08
DX: S93.402A Sprain of unspecified ligament of left ankle, initial encounter (principal); S39.012A Strain of muscle, fascia and tendon of lower back, initial encounter; F31.9 Bipolar disorder, unspecified; J45.909 Unspecified asthma, uncomplicated; W01.0XXA Fall on same level from slipping, tripping and stumbling without subsequent striking against object, initial encounter; Y92.89 Other specified places as the place of occurrence of the external cause
CPT/HCPCS: J1885

== ENCOUNTER → 2018-03-06 | Outpatient (CLI) | payer OTHER | LOC: COL.RAD 23:05 | DX: M54.42 Lumbago with sciatica, left side (principal) ==

== ENCOUNTER 2018-03-27 15:59 | Emergency (ER) | payer OTHER ==
[~2018-03-27] VITALS: Ht 170.2 cm; Wt 63.6 kg
[2018-03-27 16:02] VITALS: BP 116/62; TEMP 98.1
[2018-03-27] MEDS ORDERED: INDOCIN 25MG CA25 MG PO (16:53)
[2018-03-27 17:10] VITALS: PULSE 73
== END 2018-03-27 17:10 | disposition home or self-care (01) ==
LOC: COL.ER 15:59
DX: R07.89 Other chest pain (principal)

== ENCOUNTER 2018-03-29 14:07 | Emergency (ER) | payer OTHER ==
[~2018-03-29] VITALS: Ht 170.2 cm; Wt 63.6 kg
[~2018-03-29 14:07] MED LIST changes: +INDOCIN 25MG CA25 MG PO
[2018-03-29 14:10] VITALS: TEMP 98.6
[2018-03-29] MEDS ORDERED: SEROQUEL50 MG PO (15:30)
[2018-03-29] MEDS ORDERED: LOPRESSOR 550 MG/TAB PO (15:30)
[2018-03-29 16:13] VITALS: BP 106/70; PULSE 90
== END 2018-03-29 16:14 | disposition home or self-care (01) ==
LOC: COL.ER 14:07
DX: G43.909 Migraine, unspecified, not intractable, without status migrainosus (principal); F32.9 Major depressive disorder, single episode, unspecified; Z90.49 Acquired absence of other specified parts of digestive tract; Z90.710 Acquired absence of both cervix and uterus
CPT/HCPCS: J1200; J1885; J2765; J3010; J7030

== ENCOUNTER 2018-03-30 15:48 | Emergency (ER) | payer OTHER ==
[~2018-03-30] VITALS: Ht 170.2 cm; Wt 63.6 kg
[~2018-03-30 15:48] MED LIST changes: +LOPRESSOR 550 MG/TAB PO; +SEROQUEL50 MG PO
[2018-03-30 18:45] VITALS: BP 101/68; PULSE 66; TEMP 98.9
== END 2018-03-30 18:46 | disposition home or self-care (01) ==
LOC: COL.ER 15:48
DX: R07.89 Other chest pain (principal); G43.909 Migraine, unspecified, not intractable, without status migrainosus; F31.9 Bipolar disorder, unspecified

== ENCOUNTER → 2018-04-08 | Outpatient (CLI) | payer OTHER | LOC: ZCOL.LAB 17:19 | DX: J02.9 Acute pharyngitis, unspecified (principal) ==

== ENCOUNTER → 2018-04-08 | Outpatient (CLI) | payer OTHER ==
[2018-04-08 13:30] LABS: THYROID STIMULATING HORMONE 0.957 uIU/mL (0.465-4.680)
== END ==
LOC: COL.LAB 12:02
PROVIDERS: Family Medicine
DX: E05.90 Thyrotoxicosis, unspecified without thyrotoxic crisis or storm (principal)

== ENCOUNTER 2018-04-28 20:04 | Emergency (ER) | payer OTHER ==
[~2018-04-28] VITALS: Ht 170.2 cm; Wt 61.4 kg
[2018-04-28 20:20] VITALS: BP 131/79; TEMP 98.7
[2018-04-28 22:04] VITALS: PULSE 89
== END 2018-04-28 22:04 | disposition home or self-care (01) ==
LOC: COL.ER 20:04
DX: M25.532 Pain in left wrist (principal)
CPT/HCPCS: J1885

== ENCOUNTER → 2018-05-06 | Outpatient (CLI) | payer OTHER | LOC: COL.RAD 05-04 13:00 | DX: R42 Dizziness and giddiness (principal) | CPT/HCPCS: Q9967 ==

== ENCOUNTER → 2018-05-19 | Outpatient (CLI) | payer OTHER | LOC: BHSO 08:15 | DX: F31.81 Bipolar II disorder (principal) | CPT/HCPCS: G0463 ==

== ENCOUNTER → 2018-07-16 | Outpatient (CLI) | payer OTHER | LOC: BHSO 10:57 | DX: F31.81 Bipolar II disorder (principal) ==

== ENCOUNTER → 2018-07-27 | Outpatient (CLI) | payer OTHER | LOC: MC.RAD 09:00 | DX: N63.10 Unspecified lump in the right breast, unspecified quadrant (principal); N63.20 Unspecified lump in the left breast, unspecified quadrant; Z80.3 Family history of malignant neoplasm of breast | CPT/HCPCS: G0279 ==

== ENCOUNTER → 2018-07-29 | Outpatient (CLI) | payer OTHER | LOC: BHSO 13:49 | DX: F31.81 Bipolar II disorder (principal) ==

== ENCOUNTER → 2018-08-12 | Outpatient (CLI) | payer OTHER | LOC: BHSO 13:53 | DX: F31.81 Bipolar II disorder (principal) ==

== ENCOUNTER 2018-08-29 22:08 | Emergency (ER) | payer OTHER ==
[~2018-08-29] VITALS: Ht 170.2 cm; Wt 60.0 kg
[~2018-08-29 22:08] MED LIST changes: +SEROQUEL 1100 MG/TAB PO; -SEROQUEL50 MG PO
[2018-08-29 22:12] VITALS: BP 133/77; TEMP 98.8
[2018-08-29] MEDS ORDERED: ALBUTEROL0.83 MG/ML IH (22:16)
[2018-08-29] MEDS ORDERED: ZITHROMAX 250M250 MG PO (22:27)
[2018-08-29 22:39] LABS: STREP SCREEN NEGATIVE
[2018-08-29] MEDS ORDERED: PREDNISONE20 MG PO (23:51)
[2018-08-30 00:20] VITALS: PULSE 109
== END 2018-08-30 00:20 | disposition home or self-care (01) ==
LOC: COL.ER 22:08
PROVIDERS: Physician Assistant
DX: J45.901 Unspecified asthma with (acute) exacerbation (principal); J06.9 Acute upper respiratory infection, unspecified; Z90.710 Acquired absence of both cervix and uterus
CPT/HCPCS: J1100

== ENCOUNTER 2018-08-30 19:53 | Emergency (ER) | payer OTHER ==
[~2018-08-30] VITALS: Ht 170.2 cm; Wt 59.1 kg
[~2018-08-30 19:53] MED LIST changes: +ALBUTEROL0.83 MG/ML IH
[2018-08-30 20:04] VITALS: BP 100/69; TEMP 97.5
[2018-08-30 21:20] VITALS: PULSE 102
== END 2018-08-30 21:21 | disposition home or self-care (01) ==
LOC: COL.ER 19:53
DX: S60.221A Contusion of right hand, initial encounter (principal); L93.0 Discoid lupus erythematosus; F31.9 Bipolar disorder, unspecified; J45.909 Unspecified asthma, uncomplicated; W22.09XA Striking against other stationary object, initial encounter; Y92.009 Unspecified place in unspecified non-institutional (private) residence as the place of occurrence of the external cause

== ENCOUNTER → 2018-09-01 | Outpatient (CLI) | payer OTHER | LOC: COL.RAD 10:15 | DX: M79.641 Pain in right hand (principal) ==

== ENCOUNTER → 2018-09-10 | Outpatient (CLI) | payer OTHER | LOC: COL.RAD 12:57 | DX: J40 Bronchitis, not specified as acute or chronic (principal) ==

== ENCOUNTER → 2018-09-17 | Outpatient (CLI) | payer OTHER | LOC: BHSO 13:00 | DX: F43.10 Post-traumatic stress disorder, unspecified (principal) ==

== ENCOUNTER → 2018-09-21 | Outpatient (CLI) | payer OTHER | LOC: BHSO 10:18 | DX: F43.10 Post-traumatic stress disorder, unspecified (principal) | CPT/HCPCS: G0463 ==

== ENCOUNTER → 2018-09-25 | Outpatient (CLI) | payer OTHER | LOC: BHSO 10:57 | DX: F31.81 Bipolar II disorder (principal) ==

== ENCOUNTER → 2018-10-05 | Outpatient (CLI) | payer OTHER | LOC: COL.LAB 09:23 | PROVIDERS: Psychiatry & Neurology Psychiatry | DX: Z79.899 Other long term (current) drug therapy (principal) ==

== ENCOUNTER → 2018-10-07 | Outpatient (CLI) | payer OTHER | LOC: BHSO 14:55 | DX: F31.81 Bipolar II disorder (principal) ==

== ENCOUNTER → 2018-11-11 | Outpatient (CLI) | payer OTHER | LOC: BHSO 14:57 | DX: F31.81 Bipolar II disorder (principal) ==

== ENCOUNTER 2018-11-15 20:07 | Emergency (ER) | payer OTHER ==
[~2018-11-15] VITALS: Ht 170.2 cm; Wt 61.4 kg
[2018-11-15 20:14] VITALS: TEMP 97.9
[2018-11-15 22:43] VITALS: BP 101/56; PULSE 74
== END 2018-11-15 22:45 | disposition home or self-care (01) ==
LOC: COL.ER 20:07
DX: S93.402A Sprain of unspecified ligament of left ankle, initial encounter (principal); S70.02XA Contusion of left hip, initial encounter; F31.9 Bipolar disorder, unspecified; J45.909 Unspecified asthma, uncomplicated; W19.XXXA Unspecified fall, initial encounter; X50.1XXA Overexertion from prolonged static or awkward postures, initial encounter; Y92.009 Unspecified place in unspecified non-institutional (private) residence as the place of occurrence of the external cause
CPT/HCPCS: J1885

== ENCOUNTER → 2018-11-27 | Outpatient (CLI) | payer OTHER ==
[~2018-11-27] MED LIST changes: +ROXICODONE 55 MG/TAB PO
== END ==
LOC: COL.RAD 09:17
DX: M54.5 Low back pain (principal)

== ENCOUNTER 2018-11-29 18:17 | Observation (INO) | payer OTHER ==
[~2018-11-29] VITALS: Ht 170.2 cm; Wt 60.9 kg
[~2018-11-29 18:17] MED LIST changes: -ROXICODONE 55 MG/TAB PO
[2018-11-29 19:09] LABS: COLLECTION METHOD CLEAN CATCH
[2018-11-29 19:14] LABS: BASO % 0.3 % (0.0-2.0); EOS # 0.1 (0.0-0.7); EOS % 0.6 % (0-4.0); GRAN # 6.9 (1.4-6.5); GRAN % 70.8 % (42.2-75.2); HEMATOCRIT 44.7 % (37.0-47.0); HEMOGLOBIN 14.6 g/dl (12.5-16.0); LYMPH # 1.9 (1.2-3.4); LYMPH % 19.3 % (20.0-51.0); MEAN CELL VOLUME 91 fl (80.0-100.0); MEAN CORPUSCULAR HEMOGLOBIN 30 pg (27.0-31.0); MEAN CORPUSCULAR HGB CONC 33 g/dl (33.0-37.0); MEAN PLATELET VOLUME 9.9 fl (7.4-10.4); MONO # 0.9 (0.1-0.6); MONO % 8.8 % (1.7-9.3); PLATELET COUNT 237 K/mm3 (130-400); RED BLOOD COUNT 4.94 M/mm3 (4.10-5.30); REDCELL DISTRIBUTION WIDTH-CV 12.9 % (11.5-14.5)
[2018-11-29] MEDS ORDERED: ROXICODONE 55 MG/TAB PO (19:17)
[2018-11-29 19:22] LABS: PH 7 (5-8); SQUAMOUS EPITHELIAL 0-2 /hpf; URINE APPEARANCE Clear; URINE BACTERIA None Seen /hpf; URINE BILIRUBIN Negative (NEGATIVE); URINE BLOOD Negative (NEGATIVE); URINE COLOR Colorless; URINE GLUCOSE Negative (NEGATIVE); URINE KETONE Negative (NEGATIVE); URINE LEUKOCYTE ESTERASE Negative (NEGATIVE); URINE NITRATE Negative (NEGATIVE); URINE PROTEIN(semi-quant) Negative (NEGATIVE); URINE RBC None Seen /hpf; URINE UROBILINOGEN Negative (NEGATIVE)
[2018-11-29 19:33] LABS: ALBUMIN 4.6 gm/dL (3.5-5.0); BILIRUBIN,TOTAL 0.3 mg/dL (0.0-1.0); C-REACTIVE PROTEIN 3.9 mg/dL (0.0-0.9); CALCIUM 9.5 mg/dL (8.4-10.2); CREATININE, serum 0.87 (0.52-1.25); POTASSIUM 3.5 mmol/L (3.4-5.0); TOTAL PROTEIN 7.2 gm/dL (6.4-8.2)
[2018-11-30] VITALS (11 sets, daily range): BP systolic 88–115; BP diastolic 44–72; PULSE 67–100; TEMP 98.4–99
--- NOTE | 2018-11-30 01:10 | NUR ---
PATIENT ADMITED INTO ROOM 347 POST OP LAP APPY. UPON ENTERING ROOM PATIENT MADE SURE TO MENTION THAT SHE IS STARTING TO HAVE LOTS OF PAIN. ER REPORTS PATIENT IS A FREQUENT FLIER IN THE ER. PATIENT TAKES PAIN AND ANXIETY MEDS AT HOME. NOTED B/P IN THE LOW 100'S SYSTOLIC. ALL OTHER VSS. PATIENT IS DROWSY AND APPEARS TO BE COMFORTABLE. PATIENT DID NOT GIVE PAIN A NUMBER. ABDOMINAL LAP SITES X3 CD&I WITH BANDAIDS. ABDOMIN IS FLAT, SOFT AND WITH POSITIVE BOWL SOUNDS. NO C/O N/V. IV FLUIDS INFUSING INTO LEFT AC. HEAD TO TOE ASSESSMENT WNL. CALL LIGHT IN REACH. BOYFRIEND AT BEDSIDE.
--- NOTE | 2018-11-30 01:55 | NUR ---
PATIENT REQUESTING PAIN MEDS. GAVE PRN PERCOCET, ONE TAB.
--- NOTE | 2018-11-30 08:50 | NUR ---
Patient in bed resting. Alert and oriented x 3. Shift assessment complete. Friend at bedside. Lap sites x3 with bandaids, CDI. States pain 5/10 at this time,will give medications per orders. Denies further needs at this time.
--- NOTE | 2018-11-30 12:06 | NUR ---
Contacted Dr. Costello, patient would like to know if she is going to discharge. Dr. Costello also notified of low BP. Will continue to monitor.
--- NOTE | 2018-11-30 12:21 | NUR ---
First visit from the scientist electronics. No needs right now.
--- NOTE | 2018-11-30 14:00 | NUR ---
Discharge education provided to patient. Educated on signs and symptoms of infection. Follow up appointment provided to patient. INT to left AC discontinued, catheter tip intact. Tolerated procedure well. All questions answered. Denies further needs at this time. Patient out by wheelchair with surgical staff and spouse.
== END 2018-11-30 14:00 | disposition home or self-care (01) ==
LOC: COL.ER 18:17 → SURG 22:12
PROVIDERS: Nurse Practitioner; ADMIT Surgery
DX: K35.80 Unspecified acute appendicitis (principal); J45.909 Unspecified asthma, uncomplicated; G89.29 Other chronic pain; F41.9 Anxiety disorder, unspecified; F32.9 Major depressive disorder, single episode, unspecified; Z90.49 Acquired absence of other specified parts of digestive tract; Z88.0 Allergy status to penicillin; Z88.5 Allergy status to narcotic agent; Z88.6 Allergy status to analgesic agent; Z88.1 Allergy status to other antibiotic agents; Z88.8 Allergy status to other drugs, medicaments and biological substances; Z91.018 Allergy to other foods; Z90.710 Acquired absence of both cervix and uterus
CPT/HCPCS: G0378; G0379; J1100; J1170; J1885; J1956; J2405; J2550; J2704; J3010; J7030; J7120; Q9967

== ENCOUNTER → 2018-12-28 | Outpatient (CLI) | payer OTHER ==
[~2018-12-28] MED LIST changes: +ROXICODONE 55 MG/TAB PO
== END ==
LOC: COL.RAD 12:11
DX: R07.81 Pleurodynia (principal)

== ENCOUNTER → 2019-02-02 | Outpatient (CLI) | payer OTHER ==
[2019-02-03 01:24] LABS: FOLATE (FOLIC ACID) 5.4 ng/mL (7.0-31.4)
== END ==
LOC: COL.LAB 08:52
PROVIDERS: Psychiatry & Neurology Neurology
DX: E55.9 Vitamin D deficiency, unspecified (principal); E53.9 Vitamin B deficiency, unspecified; E61.1 Iron deficiency; E53.1 Pyridoxine deficiency; E61.2 Magnesium deficiency; G25.81 Restless legs syndrome

== ENCOUNTER 2019-02-06 19:40 | Emergency (ER) | payer OTHER ==
[~2019-02-06] VITALS: Ht 172.7 cm; Wt 57.7 kg
[2019-02-06 20:02] VITALS: TEMP 99.8
[2019-02-06 21:17] LABS: HEMATOCRIT 41.7 % (37.0-47.0); HEMOGLOBIN 13.8 g/dl (12.5-16.0); MEAN CELL VOLUME 87 fl (80.0-100.0); MEAN CORPUSCULAR HEMOGLOBIN 29 pg (27.0-31.0); MEAN CORPUSCULAR HGB CONC 33 g/dl (33.0-37.0); PLATELET COUNT 231 K/mm3 (130-400); RED BLOOD COUNT 4.78 M/mm3 (4.10-5.30); REDCELL DISTRIBUTION WIDTH-CV 12.5 % (11.5-14.5)
[2019-02-06 21:33] LABS: ALANINE AMINOTRANSFERASE 7 U/L (9-52); ALBUMIN 4.4 gm/dL (3.5-5.0); ALKALINE PHOSPHATASE 83 U/L (50-136); ANION GAP 10 mmol/L (7-16); AST,SGOT 21 U/L (15-37); BILIRUBIN,TOTAL 0.2 mg/dL (0.0-1.0); BLOOD UREA NITROGEN 11 mg/dL (7-17); CALCIUM 9.4 mg/dL (8.4-10.2); CARBON DIOXIDE 20 mmol/L (22-30); CHLORIDE 110 mmol/L (98-107); CREATININE, serum 0.92 (0.52-1.25); GLUCOSE 89 mg/dL (74-106); POTASSIUM 3.9 mmol/L (3.4-5.0); SODIUM 140 mmol/L (137-145); TOTAL PROTEIN 7.1 gm/dL (6.4-8.2)
[2019-02-06 21:37] LABS: C-REACTIVE PROTEIN < 0.5 mg/dL (0.0-0.9)
[2019-02-06] MEDS ORDERED: ULTRAM ER300 MG PO (21:55)
[2019-02-06 22:01] LABS: BAND 2 % (0-10); EOSINOPHIL 1 % (0-4); LYMPHOCYTE 41 % (20.0-51.0); NEUTROPHILS 51 % (42.0-75.2)
[2019-02-06 22:02] LABS: OVALOCYTES 1+; PLATELET ESTIMATE NORMAL (NORMAL)
[2019-02-06 22:50] VITALS: PULSE 86
== END 2019-02-06 22:50 | disposition home or self-care (01) ==
LOC: COL.ER 19:40
PROVIDERS: Emergency Medicine
DX: G43.909 Migraine, unspecified, not intractable, without status migrainosus (principal)
CPT/HCPCS: J1170; J2550; J7030

== ENCOUNTER → 2019-02-11 | Outpatient (CLI) | payer OTHER ==
[~2019-02-11] MED LIST changes: +ULTRAM ER300 MG PO
== END ==
LOC: BHSO 08:53
DX: F31.81 Bipolar II disorder (principal)
CPT/HCPCS: G0463

== ENCOUNTER → 2019-02-22 | Outpatient (CLI) | payer OTHER | LOC: BHSO 14:43 | DX: F31.81 Bipolar II disorder (principal) ==

== ENCOUNTER → 2019-03-08 | Outpatient (CLI) | payer OTHER ==
[2019-03-08 14:46] LABS: BASO % 0.6 % (0.0-2.0); EOS # 0.1 (0.0-0.7); EOS % 1.2 % (0-4.0); GRAN # 3.2 (1.4-6.5); GRAN % 61.7 % (42.2-75.2); HEMATOCRIT 42.5 % (37.0-47.0); LYMPH # 1.3 (1.2-3.4); LYMPH % 25.6 % (20.0-51.0); MEAN CELL VOLUME 88 fl (80.0-100.0); MEAN CORPUSCULAR HEMOGLOBIN 29 pg (27.0-31.0); MEAN CORPUSCULAR HGB CONC 33 g/dl (33.0-37.0); MEAN PLATELET VOLUME 9.6 fl (7.4-10.4); MONO # 0.6 (0.1-0.6); MONO % 10.7 % (1.7-9.3); PLATELET COUNT 211 K/mm3 (130-400); RED BLOOD COUNT 4.82 M/mm3 (4.10-5.30); REDCELL DISTRIBUTION WIDTH-CV 13.6 % (11.5-14.5)
[2019-03-09 12:35] LABS: STOOL FOR OCCULT BLOOD NEGATIVE (NEGATIVE)
== END ==
LOC: COL.LAB 14:15
PROVIDERS: Family Medicine
DX: R19.7 Diarrhea, unspecified (principal); R10.9 Unspecified abdominal pain

== ENCOUNTER → 2019-03-23 | Outpatient (CLI) | payer OTHER | LOC: MHCPAIN 14:03 | DX: M47.817 Spondylosis without myelopathy or radiculopathy, lumbosacral region (principal); M54.16 Radiculopathy, lumbar region | CPT/HCPCS: G0463 ==

== ENCOUNTER → 2019-04-19 | Outpatient (CLI) | payer OTHER | LOC: BHSO 09:14 | DX: F31.81 Bipolar II disorder (principal) | CPT/HCPCS: G0463 ==

== ENCOUNTER → 2019-04-20 | Outpatient (CLI) | payer OTHER | LOC: COL.RAD 14:03 | DX: M54.9 Dorsalgia, unspecified (principal) ==

== ENCOUNTER 2019-04-25 20:08 | Emergency (ER) | payer OTHER ==
[~2019-04-25] VITALS: Ht 170.2 cm; Wt 57.7 kg
[2019-04-25 20:21] VITALS: BP 117/66
[2019-04-25 23:20] VITALS: PULSE 89; TEMP 98.2
== END 2019-04-25 23:25 | disposition home or self-care (01) ==
LOC: COL.ER 20:08
DX: S30.0XXA Contusion of lower back and pelvis, initial encounter (principal); F31.9 Bipolar disorder, unspecified; W00.0XXA Fall on same level due to ice and snow, initial encounter
CPT/HCPCS: J1885

== ENCOUNTER → 2019-05-03 | Outpatient (CLI) | payer OTHER | LOC: BHSO 14:02 | DX: F31.11 Bipolar disorder, current episode manic without psychotic features, mild (principal) ==

== ENCOUNTER 2019-05-05 16:00 | Emergency (ER) | payer OTHER ==
[~2019-05-05] VITALS: Ht 172.7 cm; Wt 58.2 kg
[2019-05-05 16:12] VITALS: BP 109/61; TEMP 98.7
[2019-05-05 18:20] VITALS: PULSE 86
== END 2019-05-05 18:25 | disposition home or self-care (01) ==
LOC: COL.ER 16:00
DX: S62.614A Displaced fracture of proximal phalanx of right ring finger, initial encounter for closed fracture (principal); W23.0XXA Caught, crushed, jammed, or pinched between moving objects, initial encounter; Y92.009 Unspecified place in unspecified non-institutional (private) residence as the place of occurrence of the external cause

== ENCOUNTER → 2019-05-06 | Outpatient (CLI) | payer OTHER | LOC: COL.RAD 12:25 | DX: M54.2 Cervicalgia (principal); M54.9 Dorsalgia, unspecified ==

== ENCOUNTER 2019-05-19 14:15 | Outpatient (RCR) | payer OTHER ==
[2019-06-06] MEDS ORDERED: CELEBREX 200MG200 MG PO (16:47)
[2019-06-06] MEDS ORDERED: GEODON 40MG40 MG PO (16:48)
[2019-06-26] MEDS ORDERED: AJOVY225 MG/1.5 SQ (16:07)
== END 2019-07-20 | disposition home or self-care (01) ==
LOC: WSPT
DX: M53.3 Sacrococcygeal disorders, not elsewhere classified (principal); M47.27 Other spondylosis with radiculopathy, lumbosacral region

== ENCOUNTER 2019-05-21 11:38 | Emergency (ER) | payer OTHER ==
[~2019-05-21] VITALS: Ht 172.7 cm; Wt 56.8 kg
[2019-05-21 11:49] VITALS: BP 121/75; TEMP 97.8
[2019-05-21 14:30] VITALS: PULSE 72
== END 2019-05-21 14:45 | disposition home or self-care (01) ==
LOC: COL.ER 11:38
DX: G43.909 Migraine, unspecified, not intractable, without status migrainosus (principal); F31.9 Bipolar disorder, unspecified; Z88.0 Allergy status to penicillin; Z88.5 Allergy status to narcotic agent
CPT/HCPCS: J1200; J1885; J2550; J2765; J3010; J7030

== ENCOUNTER → 2019-05-24 | Outpatient (CLI) | payer OTHER | LOC: COL.RAD 07:09 | DX: R20.0 Anesthesia of skin (principal); R20.2 Paresthesia of skin | CPT/HCPCS: A9585 ==

== ENCOUNTER → 2019-05-25 | Outpatient (CLI) | payer OTHER | LOC: BHSO 10:36 | DX: F31.81 Bipolar II disorder (principal) | CPT/HCPCS: G0463 ==

== ENCOUNTER → 2019-05-26 | Outpatient (CLI) | payer OTHER | LOC: BHSO 14:01 | DX: F43.10 Post-traumatic stress disorder, unspecified (principal) ==

== ENCOUNTER 2019-06-06 16:38 | Emergency (ER) | payer OTHER ==
[~2019-06-06] VITALS: Ht 172.7 cm; Wt 60.5 kg
[2019-06-06 16:44] VITALS: BP 123/70; TEMP 97.1
[2019-06-06] MEDS ORDERED: CELEBREX 200MG200 MG PO (16:47)
[2019-06-06] MEDS ORDERED: GEODON 40MG40 MG PO (16:48)
[2019-06-06 18:48] VITALS: PULSE 84
== END 2019-06-06 18:50 | disposition home or self-care (01) ==
LOC: COL.ER 16:38
DX: G43.909 Migraine, unspecified, not intractable, without status migrainosus (principal); F31.9 Bipolar disorder, unspecified
CPT/HCPCS: J1200; J1630; J3010; J7030

== ENCOUNTER → 2019-06-16 | Outpatient (CLI) | payer OTHER ==
[~2019-06-16] MED LIST changes: +CELEBREX 200MG200 MG PO; +GEODON 40MG40 MG PO
== END ==
LOC: MHCPAIN 10:15
DX: M53.3 Sacrococcygeal disorders, not elsewhere classified (principal); M47.27 Other spondylosis with radiculopathy, lumbosacral region
CPT/HCPCS: G0463

== ENCOUNTER → 2019-06-17 | Outpatient (CLI) | payer OTHER | LOC: BHSO 15:18 | DX: F43.10 Post-traumatic stress disorder, unspecified (principal) ==

== ENCOUNTER 2019-06-26 14:44 | Emergency (ER) | payer OTHER ==
[2019-06-26 14:59] VITALS: TEMP 98.7
[2019-06-26] MEDS ORDERED: AJOVY225 MG/1.5 SQ (16:07)
[2019-06-26 18:05] VITALS: BP 105/63; PULSE 98
== END 2019-06-26 18:05 | disposition home or self-care (01) ==
LOC: COL.ER 14:44
DX: B34.9 Viral infection, unspecified (principal); Z90.89 Acquired absence of other organs; Z88.0 Allergy status to penicillin; Z88.8 Allergy status to other drugs, medicaments and biological substances; Z88.1 Allergy status to other antibiotic agents

== ENCOUNTER → 2019-08-04 | Outpatient (CLI) | payer OTHER ==
[~2019-08-04] MED LIST changes: +AJOVY225 MG/1.5 SQ
== END ==
LOC: BHSO 10:00
DX: F43.10 Post-traumatic stress disorder, unspecified (principal)

== ENCOUNTER → 2019-08-25 | Outpatient (CLI) | payer OTHER | LOC: BHSO 10:40 | DX: F31.81 Bipolar II disorder (principal) | CPT/HCPCS: G0463 ==

== ENCOUNTER → 2019-08-26 | Outpatient (CLI) | payer OTHER | LOC: BHSO 10:00 | DX: F31.81 Bipolar II disorder (principal) ==

== ENCOUNTER → 2019-09-15 | Outpatient (CLI) | payer OTHER | LOC: BHSO 13:00 | DX: F43.10 Post-traumatic stress disorder, unspecified (principal) ==

== ENCOUNTER 2019-09-26 00:03 | Emergency (ER) | payer OTHER ==
[~2019-09-26] VITALS: Ht 170.2 cm; Wt 64.5 kg
[2019-09-26 00:16] VITALS: BP 112/75; TEMP 98.2
[2019-09-26] MEDS ORDERED: BUSPIRONE HCL7.5 MG PO (00:19)
[2019-09-26] MEDS ORDERED: NORCO 325 MG-51 TAB PO (00:19)
[2019-09-26 00:45] LABS: COLLECTION METHOD CLEAN CATCH
[2019-09-26 01:00] LABS: PH 6 (5-8); SQUAMOUS EPITHELIAL 0-2 /hpf; URINE APPEARANCE Clear; URINE BACTERIA None Seen /hpf; URINE BILIRUBIN Negative (NEGATIVE); URINE BLOOD Negative (NEGATIVE); URINE COLOR Yellow; URINE GLUCOSE Negative (NEGATIVE); URINE KETONE Negative (NEGATIVE); URINE LEUKOCYTE ESTERASE Negative (NEGATIVE); URINE NITRATE Negative (NEGATIVE); URINE PROTEIN(semi-quant) Negative (NEGATIVE); URINE RBC 0-2 /hpf; URINE UROBILINOGEN Negative (NEGATIVE)
[2019-09-26 02:47] VITALS: PULSE 98
[2019-09-26] MEDS ORDERED: FLEXERIL 1010 MG/TAB PO (21:13)
== END 2019-09-26 02:58 | disposition home or self-care (01) ==
LOC: COL.ER 00:03
PROVIDERS: Emergency Medicine
DX: M79.18 Myalgia, other site (principal); F32.9 Major depressive disorder, single episode, unspecified; Z79.899 Other long term (current) drug therapy

== ENCOUNTER 2019-09-26 20:50 | Emergency (ER) | payer OTHER ==
[~2019-09-26] VITALS: Ht 170.2 cm; Wt 64.5 kg
[~2019-09-26 20:50] MED LIST changes: +BUSPIRONE HCL7.5 MG PO
[2019-09-26 20:56] VITALS: BP 98/66; TEMP 97.8
[2019-09-26] MEDS ORDERED: FLEXERIL 1010 MG/TAB PO (21:13)
[2019-09-26 22:09] VITALS: PULSE 92
== END 2019-09-26 22:09 | disposition home or self-care (01) ==
LOC: COL.ER 20:50
DX: M54.5 Low back pain (principal); Z90.49 Acquired absence of other specified parts of digestive tract
CPT/HCPCS: J1170; J1630; J1885; J2550

== ENCOUNTER 2019-10-02 10:54 | Emergency (ER) | payer OTHER ==
[~2019-10-02] VITALS: Ht 172.7 cm; Wt 68.2 kg
[2019-10-02 10:57] VITALS: BP 119/77; TEMP 98.4
[2019-10-02 13:35] VITALS: PULSE 109
== END 2019-10-02 13:35 | disposition home or self-care (01) ==
LOC: COL.ER 10:54
DX: G43.909 Migraine, unspecified, not intractable, without status migrainosus (principal); F43.10 Post-traumatic stress disorder, unspecified; F31.9 Bipolar disorder, unspecified; Z82.49 Family history of ischemic heart disease and other diseases of the circulatory system; Z90.711 Acquired absence of uterus with remaining cervical stump; Z79.899 Other long term (current) drug therapy
CPT/HCPCS: J1100; J1200; J1885; J2765; J7030

== ENCOUNTER → 2019-11-29 | Outpatient (CLI) | payer OTHER | LOC: BHSO 10:39 | DX: F43.10 Post-traumatic stress disorder, unspecified (principal) | CPT/HCPCS: G0463 ==

== ENCOUNTER → 2019-12-08 | Outpatient (CLI) | payer OTHER | LOC: BHSO 13:58 | DX: F43.10 Post-traumatic stress disorder, unspecified (principal) ==

== ENCOUNTER → 2019-12-15 | Outpatient (CLI) | payer OTHER | LOC: BHSO 10:54 | DX: F43.10 Post-traumatic stress disorder, unspecified (principal) ==

== ENCOUNTER → 2019-12-29 | Outpatient (CLI) | payer OTHER | LOC: BHSO 10:57 | DX: F43.10 Post-traumatic stress disorder, unspecified (principal) ==

== ENCOUNTER → 2020-01-19 | Outpatient (CLI) | payer OTHER | LOC: BHSO 14:49 | DX: F43.10 Post-traumatic stress disorder, unspecified (principal) ==

== ENCOUNTER → 2020-01-26 | Outpatient (CLI) | payer OTHER | LOC: BHSO 11:17 | DX: F43.10 Post-traumatic stress disorder, unspecified (principal) ==

== ENCOUNTER 2020-04-19 18:58 | Emergency (ER) | payer OTHER ==
[~2020-04-19] VITALS: Ht 172.7 cm; Wt 64.5 kg
[~2020-04-19 18:58] MED LIST changes: +VOLTAREN 75 DR75 MG PO
[2020-04-19 19:09] VITALS: BP 139/86; TEMP 98.4
[2020-04-19 19:57] LABS: BASO % 0.6 % (0.0-2.0); EOS % 0.9 % (0-4.0); GRAN # 2.4 (1.4-6.5); GRAN % 51.8 % (42.2-75.2); HEMATOCRIT 42.2 % (37.0-47.0); LYMPH # 1.6 (1.2-3.4); LYMPH % 34.6 % (20.0-51.0); MEAN CELL VOLUME 88 fl (80.0-100.0); MEAN CORPUSCULAR HEMOGLOBIN 29 pg (27.0-31.0); MEAN CORPUSCULAR HGB CONC 33 g/dl (33.0-37.0); MEAN PLATELET VOLUME 9.4 fl (7.4-10.4); MONO # 0.6 (0.1-0.6); MONO % 11.9 % (1.7-9.3); PLATELET COUNT 212 K/mm3 (130-400); RED BLOOD COUNT 4.79 M/mm3 (4.10-5.30); REDCELL DISTRIBUTION WIDTH-CV 12.6 % (11.5-14.5)
[2020-04-19 20:03] LABS: ALANINE AMINOTRANSFERASE 12 U/L (4-34); ALBUMIN 4.4 gm/dL (3.5-5.0); ALKALINE PHOSPHATASE 89 U/L (50-136); ANION GAP 10 mmol/L (7-16); AST,SGOT 19 U/L (15-37); BILIRUBIN,TOTAL 0.2 mg/dL (0.0-1.0); BLOOD UREA NITROGEN 13 mg/dL (7-17); CALCIUM 9.2 mg/dL (8.4-10.2); CARBON DIOXIDE 23 mmol/L (22-30); CHLORIDE 106 mmol/L (98-107); CREATININE, serum 0.91 (0.52-1.25); GLUCOSE 106 mg/dL (74-106); POTASSIUM 3.7 mmol/L (3.4-5.0); SODIUM 139 mmol/L (137-145); TOTAL PROTEIN 6.8 gm/dL (6.4-8.2)
[2020-04-19 20:14] LABS: TROPONIN-I < 0.012 ng/mL (0.000-0.035)
[2020-04-19] MEDS ORDERED: VOLTAREN 75 DR75 MG PO (23:46)
[2020-04-19 23:53] VITALS: PULSE 110
== END 2020-04-19 23:57 | disposition home or self-care (01) ==
LOC: COL.ER 18:58
PROVIDERS: Emergency Medicine
DX: R07.89 Other chest pain (principal); R00.0 Tachycardia, unspecified; G89.29 Other chronic pain; Z88.0 Allergy status to penicillin; Z88.1 Allergy status to other antibiotic agents; Z88.6 Allergy status to analgesic agent
CPT/HCPCS: J1885; J2060; J7030; Q9967

== ENCOUNTER 2020-04-29 15:12 | Emergency (ER) | payer OTHER ==
[~2020-04-29] VITALS: Ht 172.7 cm; Wt 64.5 kg
[2020-04-29 15:19] VITALS: TEMP 98.2
[2020-04-29] MEDS ORDERED: ZOFRAN ODT4 MG PO (15:44)
[2020-04-29 15:55] VITALS: BP 120/67; PULSE 119
== END 2020-04-29 15:55 | disposition home or self-care (01) ==
LOC: COL.ER 15:12
DX: M54.5 Low back pain (principal); G89.29 Other chronic pain; Z88.0 Allergy status to penicillin; Z88.1 Allergy status to other antibiotic agents; Z88.6 Allergy status to analgesic agent

== ENCOUNTER 2020-04-30 14:48 | Emergency (ER) | payer BC ==
[~2020-04-30] VITALS: Ht 172.7 cm; Wt 63.6 kg
[2020-04-30 14:55] VITALS: BP 103/68; TEMP 98.2
[2020-04-30 15:31] VITALS: PULSE 98
== END 2020-04-30 15:32 | disposition home or self-care (01) ==
LOC: COL.ER 14:48
DX: M25.511 Pain in right shoulder (principal); M54.9 Dorsalgia, unspecified; G89.29 Other chronic pain; F11.20 Opioid dependence, uncomplicated; Z88.0 Allergy status to penicillin; Z88.1 Allergy status to other antibiotic agents; Z88.6 Allergy status to analgesic agent; Z90.49 Acquired absence of other specified parts of digestive tract; Z90.710 Acquired absence of both cervix and uterus

== ENCOUNTER → 2020-07-11 | Outpatient (CLI) | payer BC ==
[~2020-07-11] MED LIST changes: +CELEBREX 1100 MG/CAP PO; +TOPAMAX50 MG PO; +ZANAFLEX CAPSULE4 MG PO
== END ==
LOC: COL.RAD 11:40
DX: E05.90 Thyrotoxicosis, unspecified without thyrotoxic crisis or storm (principal)
CPT/HCPCS: A9516

== ENCOUNTER 2020-07-17 10:41 | Emergency (ER) | payer BC ==
[~2020-07-17] VITALS: Ht 172.7 cm; Wt 63.6 kg
[~2020-07-17 10:41] MED LIST changes: -CELEBREX 1100 MG/CAP PO; -TOPAMAX50 MG PO; -ZANAFLEX CAPSULE4 MG PO
[2020-07-17 10:49] VITALS: TEMP 97.6
[2020-07-17] MEDS ORDERED: PHENERGAN 25 TA25 MG PO (11:38)
[2020-07-17] MEDS ORDERED: TOPAMAX50 MG PO (11:38)
[2020-07-17] MEDS ORDERED: CELEBREX 1100 MG/CAP PO (11:38)
[2020-07-17] MEDS ORDERED: ZANAFLEX CAPSULE4 MG PO (12:30)
[2020-07-17 12:54] VITALS: BP 101/64; PULSE 79
== END 2020-07-17 12:55 | disposition home or self-care (01) ==
LOC: COL.ER 10:41
DX: S29.012A Strain of muscle and tendon of back wall of thorax, initial encounter (principal); F31.9 Bipolar disorder, unspecified; M54.9 Dorsalgia, unspecified; G89.29 Other chronic pain; Z88.0 Allergy status to penicillin; Z88.1 Allergy status to other antibiotic agents; Z88.6 Allergy status to analgesic agent; X58.XXXA Exposure to other specified factors, initial encounter
CPT/HCPCS: J1885

== ENCOUNTER → 2021-06-13 | Outpatient (CLI) | payer OTHER ==
[~2021-06-13] MED LIST changes: +CELEBREX 1100 MG/CAP PO; +TOPAMAX50 MG PO; +ZANAFLEX CAPSULE4 MG PO
== END ==
LOC: COL.RAD 08:49
DX: K92.1 Melena (principal)
CPT/HCPCS: Q9967

== ENCOUNTER 2021-07-27 19:09 | Emergency (ER) | payer OTHER ==
[~2021-07-27] VITALS: Ht 172.7 cm; Wt 68.2 kg
[2021-07-27 19:16] VITALS: TEMP 98.2
[2021-07-27] MEDS ORDERED: NAPROSYN500 MG PO (20:37)
[2021-07-27 21:10] VITALS: BP 106/72; PULSE 89
== END 2021-07-27 21:10 | disposition home or self-care (01) ==
LOC: COL.ER 19:09
DX: S09.93XA Unspecified injury of face, initial encounter (principal); W54.1XXA Struck by dog, initial encounter

== ENCOUNTER 2021-08-03 12:39 | Emergency (ER) | payer OTHER ==
[~2021-08-03] VITALS: Ht 172.7 cm; Wt 68.2 kg
[2021-08-03 13:08] VITALS: TEMP 98.7
[2021-08-03 14:13] LABS: BASO % 0.8 % (0.0-2.0); EOS % 0.2 % (0.0-4.0); GRAN # 3.1 K/mm3 (1.4-6.5); GRAN % 60.7 % (42.2-75.2); HEMATOCRIT 40.3 % (37.0-47.0); HEMOGLOBIN 13.8 g/dl (12.5-16.0); LYMPH # 1.5 K/mm3 (1.2-3.4); LYMPH % 28.5 % (20.0-51.0); MEAN CELL VOLUME 88 fl (80.0-100.0); MEAN CORPUSCULAR HEMOGLOBIN 30 pg (27-31); MEAN CORPUSCULAR HGB CONC 34 g/dl (33.0-37.0); MEAN PLATELET VOLUME 9.6 fl (7.4-10.4); MONO # 0.5 K/mm3 (0.1-0.6); MONO % 9.4 % (1.7-9.3); PLATELET COUNT 221 K/mm3 (130-400); RED BLOOD COUNT 4.59 M/mm3 (4.10-5.30); REDCELL DISTRIBUTION WIDTH-CV 13.1 % (11.5-14.5)
[2021-08-03 14:23] LABS: CALCIUM 8.7 mg/dL (8.4-10.2); CREATININE, serum 0.84 mg/dL (0.57-1.11); POTASSIUM 3.5 mmol/L (3.5-4.5)
[2021-08-03] MEDS ORDERED: CARAFATE 1GM1 G PO ×2 (16:07)
[2021-08-03 19:17] VITALS: BP 99/67; PULSE 90
== END 2021-08-03 19:20 | disposition home or self-care (01) ==
LOC: COL.ER 12:39
PROVIDERS: Physician Assistant
DX: R13.10 Dysphagia, unspecified (principal); R11.2 Nausea with vomiting, unspecified
CPT/HCPCS: J2405; J2550; Q9967

== ENCOUNTER → 2021-08-10 | Outpatient (CLI) | payer OTHER ==
[~2021-08-10] MED LIST changes: +CARAFATE 1GM1 G PO
== END ==
LOC: COL.RAD 12:18
DX: E05.00 Thyrotoxicosis with diffuse goiter without thyrotoxic crisis or storm (principal)

== ENCOUNTER 2021-09-06 08:30 | Emergency (ER) | payer SELFPAY ==
[~2021-09-06] VITALS: Ht 172.7 cm; Wt 65.9 kg
[2021-09-06 08:45] VITALS: BP 106/68; TEMP 98.4
[2021-09-06] MEDS ORDERED: NORCO 325 MG-51 TAB PO (11:56)
[2021-09-06 12:30] VITALS: PULSE 90
== END 2021-09-06 12:29 | disposition home or self-care (01) ==
LOC: COL.ER 08:30
DX: S61.306A Unspecified open wound of right little finger with damage to nail, initial encounter (principal); Z88.6 Allergy status to analgesic agent; W23.0XXA Caught, crushed, jammed, or pinched between moving objects, initial encounter; Y92.810 Car as the place of occurrence of the external cause

== ENCOUNTER 2021-10-14 17:22 | Emergency (ER) | payer OTHER ==
[~2021-10-14] VITALS: Ht 172.7 cm; Wt 67.3 kg
[~2021-10-14 17:22] MED LIST changes: +LEVAQUIN 5500 MG/TA1 PO
[2021-10-14 18:28] LABS: BASO % 0.3 % (0.0-2.0); EOS % 0.7 % (0.0-4.0); GRAN # 3.6 K/mm3 (1.4-6.5); HEMATOCRIT 42.1 % (37.0-47.0); HEMOGLOBIN 14.1 g/dl (12.5-16.0); LYMPH # 1.6 K/mm3 (1.2-3.4); LYMPH % 27.6 % (20.0-51.0); MEAN CELL VOLUME 89 fl (80.0-100.0); MEAN CORPUSCULAR HEMOGLOBIN 30 pg (27-31); MEAN CORPUSCULAR HGB CONC 34 g/dl (33.0-37.0); MEAN PLATELET VOLUME 9.6 fl (7.4-10.4); MONO # 0.5 K/mm3 (0.1-0.6); MONO % 9.2 % (1.7-9.3); PLATELET COUNT 235 K/mm3 (130-400); RED BLOOD COUNT 4.73 M/mm3 (4.10-5.30); REDCELL DISTRIBUTION WIDTH-CV 11.9 % (11.5-14.5)
[2021-10-14 18:47] LABS: ALBUMIN 4.2 gm/dL (3.5-5.0); C-REACTIVE PROTEIN 0.37 mg/dL (0.00-0.50); CALCIUM 9.1 mg/dL (8.4-10.2); CREATININE, serum 0.86 mg/dL (0.57-1.11); PHOSPHOROUS 3.3 mg/dL (2.3-4.7); POTASSIUM 3.8 mmol/L (3.5-4.5)
[2021-10-14 19:50] LABS: COLLECTION METHOD CLEAN CATCH
[2021-10-14 19:56] LABS: PH 7 (5-8); SQUAMOUS EPITHELIAL None Seen /hpf (0-10); URINE APPEARANCE Clear (CLEAR/HAZY); URINE BACTERIA None Seen /hpf (NONE SEEN); URINE BILIRUBIN Negative (NEGATIVE); URINE BLOOD Negative (NEGATIVE); URINE COLOR Straw (YELLOW); URINE GLUCOSE Negative (NEGATIVE); URINE KETONE Negative (NEGATIVE); URINE LEUKOCYTE ESTERASE Negative (NEGATIVE); URINE NITRATE Negative (NEGATIVE); URINE PROTEIN(semi-quant) Negative (NEGATIVE); URINE RBC None Seen /hpf (0-2); URINE UROBILINOGEN Negative (NEGATIVE)
[2021-10-14] MEDS ORDERED: REGLAN 10MG10 MG/TAB PO (20:24)
[2021-10-14] MEDS ORDERED: NAPROSYN500 MG PO (20:24)
[2021-10-14 20:46] VITALS: BP 107/68; PULSE 87; TEMP 97.2
== END 2021-10-14 20:49 | disposition home or self-care (01) ==
LOC: COL.ER 17:22
PROVIDERS: Emergency Medicine
DX: R10.30 Lower abdominal pain, unspecified (principal); R11.0 Nausea; Z32.02 Encounter for pregnancy test, result negative; Z87.440 Personal history of urinary (tract) infections
CPT/HCPCS: J1885; J2765; J7030

== ENCOUNTER → 2021-11-02 | Outpatient (CLI) | payer OTHER | LOC: COL.RAD 13:13 | DX: N83.201 Unspecified ovarian cyst, right side (principal); Z90.710 Acquired absence of both cervix and uterus ==

== ENCOUNTER 2022-01-07 10:41 | Emergency (ER) | payer OTHER ==
[~2022-01-07] VITALS: Ht 170.2 cm; Wt 65.9 kg
[2022-01-07 11:15] LABS: BASO % 0.5 % (0.0-2.0); EOS % 0.8 % (0.0-4.0); GRAN # 2.7 K/mm3 (1.4-6.5); GRAN % 69.1 % (42.2-75.2); HEMATOCRIT 42.6 % (37.0-47.0); HEMOGLOBIN 14.5 g/dl (12.5-16.0); LYMPH # 0.8 K/mm3 (1.2-3.4); LYMPH % 21.5 % (20.0-51.0); MEAN CELL VOLUME 88 fl (80.0-100.0); MEAN CORPUSCULAR HEMOGLOBIN 30 pg (27-31); MEAN CORPUSCULAR HGB CONC 34 g/dl (33.0-37.0); MEAN PLATELET VOLUME 9.7 fl (7.4-10.4); MONO # 0.3 K/mm3 (0.1-0.6); MONO % 7.8 % (1.7-9.3); PLATELET COUNT 217 K/mm3 (130-400); RED BLOOD COUNT 4.87 M/mm3 (4.10-5.30); REDCELL DISTRIBUTION WIDTH-CV 11.9 % (11.5-14.5)
[2022-01-07 11:29] LABS: ALBUMIN 4.3 gm/dL (3.5-5.0); BILIRUBIN,TOTAL 0.4 mg/dL (0.2-1.2); CALCIUM 9.4 mg/dL (8.4-10.2); CREATININE, serum 0.9 mg/dL (0.57-1.11); POTASSIUM 3.8 mmol/L (3.5-4.5); TOTAL PROTEIN 6.8 gm/dL (6.2-8.1)
[2022-01-07 12:28] LABS: COLLECTION METHOD CLEAN CATCH
[2022-01-07 12:35] LABS: PH 5.5 (5.0-8.5); URINE APPEARANCE Clear (CLEAR/HAZY); URINE COLOR Yellow (YELLOW)
[2022-01-07 12:36] LABS: URINE BLOOD Negative (NEGATIVE); URINE GLUCOSE Negative (NEGATIVE); URINE KETONE Negative (NEGATIVE); URINE NITRATE Negative (NEGATIVE); URINE PROTEIN(semi-quant) Negative (NEGATIVE); URINE UROBILINOGEN 0.2 E.U/dL (0.2-1.0)
[2022-01-07 12:38] LABS: SQUAMOUS EPITHELIAL None Seen /hpf (0-10); URINE BACTERIA None Seen /hpf (NONE SEEN); URINE RBC 0-2 /hpf (0-2)
[2022-01-07 14:47] VITALS: BP 123/68; PULSE 102; TEMP 99.4
== END 2022-01-07 14:47 | disposition home or self-care (01) ==
LOC: COL.ER 10:41
PROVIDERS: Physician Assistant
DX: K59.00 Constipation, unspecified (principal); K64.4 Residual hemorrhoidal skin tags; R10.31 Right lower quadrant pain; R00.0 Tachycardia, unspecified; Z90.49 Acquired absence of other specified parts of digestive tract
CPT/HCPCS: J1790; J2550

== ENCOUNTER 2022-06-26 08:34 | Outpatient (CLI) | payer OTHER ==
[~2022-06-26] VITALS: Ht 170.3 cm; Wt 68.3 kg
[2022-06-26] MEDS ORDERED: VENTOLIN0.09 MG IH (08:54)
[2022-06-26] MEDS ORDERED: FLEXERIL 1010 MG/TAB PO (08:54)
[2022-06-26] MEDS ORDERED: RELPAX20 MG PO (08:55)
[2022-06-26] MEDS ORDERED: SYNTHROID0.088 MG/T PO (08:56)
[2022-06-26] MEDS ORDERED: KEPPRA 500MG500 MG PO (08:56)
[2022-06-26] MEDS ORDERED: SEROQUEL 1100 MG/TAB PO (08:57)
[2022-06-26] MEDS ORDERED: COMPLETE MULTI1 TAB PO (08:58)
[2022-06-26] MEDS ORDERED: PROAMATINE 5MG T5 MG PO (08:58)
[2022-06-26] MEDS ORDERED: TOPAMAX 100MG100 M1 PO (08:59)
[2022-06-26 09:07] VITALS: BP 105/71; PULSE 100; TEMP 98.7
[2022-06-26] MEDS ORDERED: FLORINEF ACETA0.1 MG PO (10:33)
[2022-06-26 10:51] VITALS: BP 96/63; PULSE 99
--- NOTE | 2022-06-26 10:51 | NUR ---
DC instructions reviewed with pt, she expresses understanding. No c/o nausea, dizziness at time of discharge. She is steady on feet. IV DC'd, site wrapped with coban. She is escorted out to elevator and will be meeting for ride home.
== END 2022-06-26 10:51 | disposition home or self-care (01) ==
LOC: COL.CAR 08:34
DX: R42 Dizziness and giddiness (principal); R00.2 Palpitations; R55 Syncope and collapse

== ENCOUNTER → 2022-09-11 | Outpatient (CLI) | payer OTHER ==
[~2022-09-11] MED LIST changes: +COMPLETE MULTI1 TAB PO; +FLORINEF ACETA0.1 MG PO; +KEPPRA 500MG500 MG PO; +PROAMATINE 5MG T5 MG PO; +RELPAX20 MG PO; +SYNTHROID0.088 MG/T PO; +TOPAMAX 100MG100 M1 PO
== END ==
LOC: COL.RAD 10:32
DX: R22.1 Localized swelling, mass and lump, neck (principal); Z85.850 Personal history of malignant neoplasm of thyroid